=== PATIENT | female | born 1940 | race Caucasian/White ===

== ENCOUNTER → 2016-09-30 | Outpatient (CLI) | payer MEDICARE, BC ==
[2016-09-30 12:02] LABS: Non-African American GFR(MDRD) >60 (>60 ml/min/1.73 sqM)
== END | disposition home or self-care (01) ==
LOC: LABWHC1 10:50
PROVIDERS: ATTEND Psychiatry & Neurology Neurology
DX: R20.2 Paresthesia of skin (principal); R51 Headache; M54.2 Cervicalgia; R26.89 Other abnormalities of gait and mobility
CPT/HCPCS: 36415; 82565

== ENCOUNTER → 2016-10-08 | Outpatient (CLI) | payer MEDICARE, BC ==
--- NOTE | 2016-10-08 22:45 | MR ---
EXAMINATION TYPE: MR brain wo/w cspine wo DATE OF EXAM: 10/08/2016 1:46 PM COMPARISON: NONE HISTORY: numb lips/chin, imblance, pain in head, neck and back CONTRAST: Performed utilizing 20 mL intravenous MultiHance gadolinium contrast. TECHNIQUE: Multiplanar, multiecho imaging on a 3.0 Johanna magnet is performed through the brain. Stud y is performed within 24 hours of arrival to the hospital. The craniovertebral junction is normal. The pituitary is normal. Diffusion-weighted imaging is performed. No abnormal hyperintensity is present to suggest an acute i ntracranial infarct or acute ischemic change. Minimal white matter changes present. Flores, Arcadio space is in the left basal ganglia. This could be an old corner infarct. Ventricles and sulci are slightly prominent for the patient age. IMPRESSIONS: 1. Mild age-related atrophy. 2. Minimal chronic appearing white matter ischemic changes for the patient age. 3. Lacunar infarct or Virchow-Arcadio space left basal ganglion. EXAMINATION TYPE: MR brain wo/w cspine wo DATE OF EXAM: 10/08/2016 1:46 PM COMPARISON: NONE HISTORY: numb lips/chin, imblance, pain in head, neck and back CONTRAST: Performed utilizing 20 mL intravenous MultiHance gadolinium contrast. TECHNIQUE: Multiplanar multiecho imaging on a 3.0 Johanna magnet is performed through the cervical spin e. FINDINGS: The craniovertebral junction is normal. Vertebral body alignment is normal. C7-T1: No focal disc herniation or significant disc bulge is evident. No spinal canal stenosis or n eural foraminal stenosis is present. C6-7: Mild disc bulge is anterior thecal sac contact. No AP spinal canal stenosis present. Neural for amen are patent.. C5-6: There is narrowing of the disc space. Residual disc is anterior thecal sac contact. No cord con tact is evident. No spinal canal stenosis present. Neural foramen is patent.. C4-5: There is a small left paracentral disc bulge with anterior thecal sac contact. No AP spinal can al stenosis present. Uncovertebral joint hypertrophy is moderate left and mild right foraminal narrow ing.. C3-4: Mild disc bulging is anterior thecal sac contact. No spinal canal stenosis or neural foraminal stenosis is present.. C2-3: No focal disc herniation or significant disc bulge is evident. No spinal canal stenosis or lynette ral foraminal stenosis is present. Cord maintains normal signal through its visualized course. IMPRESSIONS: 1. Mild disc bulges with anterior thecal sac contact. No significant focal disc herniation or spinal canal stenosis is evident.
== END | disposition home or self-care (01) ==
LOC: RADMRIMAIN 11:44
PROVIDERS: ATTEND Psychiatry & Neurology Neurology
DX: G61.1 Serum neuropathy (principal); R90.89 Other abnormal findings on diagnostic imaging of central nervous system; M50.20 Other cervical disc displacement, unspecified cervical region
CPT/HCPCS: 70553; 72141; A9577

== ENCOUNTER 2017-09-27 12:36 | Emergency (ER) | payer MEDICARE, BC ==
[2017-09-27 14:20] VITALS: RESP 18; TEMP 98.9
[2017-09-27 14:45] LABS: Basophils % (A) 0 %; Eosinophils # (A) 0.2 k/uL (0-0.7); Eosinophils % (A) 3 %; HCT 40.8 % (34.0-46.0); HGB 13.9 gm/dL (11.4-16.0); Lymphocytes # (A) 1.3 k/uL (1.0-4.8); Lymphocytes % (A) 18 %; MCH 27.9 pg (25.0-35.0); MCV 82.2 fL (80.0-100.0); Mean Platelet Volume 6.8; Monocytes # (A) 0.3 k/uL (0-1.0); Monocytes % (A) 5 %; Neutrophils # (A) 5.6 k/uL (1.3-7.7); Neutrophils % (A) 73 %; Platelet Count 311 k/uL (150-450); Poikilocytosis Slight; RBC 4.96 m/uL (3.80-5.40); RDW 15.1 % (11.5-15.5); WBC 7.6 k/uL (3.8-10.6)
[2017-09-27 15:02] LABS: Albumin 3.8 g/dL (3.5-5.0); Calcium 9.8 mg/dL (8.4-10.2); Potassium 3.7 mmol/L (3.5-5.1); Total Bilirubin 0.4 mg/dL (0.2-1.3); Total Protein 6.6 g/dL (6.3-8.2)
[2017-09-27 15:40] VITALS: BP 148/84; PULSE 78
--- NOTE | 2017-09-27 15:49 | ED ---
Recheck HPI - General Chief Complaint: Recheck/Abnormal Lab/Rx Stated Complaint: lt foot infection Time Seen by Provider: 09/27/17 15:08 Source: patient, RN notes reviewed, old records reviewed Mode of arrival: wheelchair Limitations: no limitations - History of Present Illness Initial Comments: 77-year-old female presents is having today chief complaint of irritation over her left second toe. 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 She had her suture removed last Wednesday. Patient states she's good range of motion of the toes. She is nondiabetic. No previous ulcerations or infections to the foot or toe. Patient reports she has no neuropathy. She denies any significant pain related to the wound. She is ALLERGIC to sulfa drugs. No fevers or chills. No significant redness or streaking up the leg. - Related Data Home Medications Medication Instructions Recorded Confirmed Garlic 1 tab PO DAILY 01/19/14 09/27/17 Hydrochlorothiazide [Hydrodiuril] 25 mg PO BID 01/19/14 09/27/17 Levothyroxine Sodium [Synthroid] 137 mcg PO DAILY 01/19/14 09/27/17 Losartan Potassium [Cozaar] 100 mg PO HS 01/19/14 09/27/17 Metoprolol Tartrate [Lopressor] 50 mg PO BID 01/19/14 09/27/17 Multivitamins, Thera [Multivitamin 1 each PO DAILY@1200 01/19/14 09/27/17 (formulary)] Omeprazole [PriLOSEC] 20 mg PO AC-BRKFST 01/19/14 09/27/17 Sodium Chloride 5% Ophth Soln 1 drops LEFT EYE BID 01/19/14 09/27/17 [Ru 128] Vegitable Laxative 3 tab PO DAILY 01/19/14 09/27/17 lamoTRIgine [LaMICtal] 25 mg PO DAILY 01/19/14 09/27/17 Estrogens, Conjugated Cream 1 mg VAGINAL DIRECTED 04/07/17 09/27/17 [Premarin Cream] Calcium Polycarbophil [Fibercon] 1,250 mg PO TID 09/27/17 09/27/17 Previous Rx's Medication Instructions Recorded Cephalexin [Keflex] 500 mg PO Q6H #40 cap 09/27/17 Collagenase [Santyl] 1 applic TOPICAL DAILY #1 tube 09/27/17 Mupirocin [Mupirocin 2%] 1 applic TOPICAL TID #1 tube 09/27/17 Allergies Allergy/AdvReac Type Severity Reaction Status Date / Time Sulfa (Sulfonamide Allergy Unknown Verified 09/27/17 15:44 Antibiotics) Review of Systems ROS Statement: Those systems with pertinent positive or pertinent negative responses have been documented in the HPI. ROS Other: All systems not noted in ROS Statement are negative. Past Medical History Past Medical History: GERD/Reflux, Hearing Disorder / Deafness, Hypertension, Osteoarthritis (OA), Sleep Apnea/CPAP/BIPAP, Thyroid Disorder Additional Past Medical History / Comment(s): trigeminal neuralgia, hypothyroidism,SL HEARING LOSS BOTH HEARS; HYPERTENSION. History of Any Multi-Drug Resistant Organisms: None Reported Past Surgical History: Cholecystectomy, Orthopedic Surgery, Tonsillectomy Additional Past Surgical History / Comment(s): bunionectomy, sinus operation, CATARACT AND THYROID SURGERY Past Psychological History: No Psychological Hx Reported Smoking Status: Never smoker Past Alcohol Use History: None Reported Past Drug Use History: None Reported General Exam - General Exam Comments Initial Comments: 77-year-old female. Alert and oriented. No distress. Limitations: no limitations General appearance: alert, in no apparent distress Head exam: Present: atraumatic, normocephalic, normal inspection Eye exam: Present: normal appearance, PERRL, EOMI. Absent: scleral icterus, conjunctival injection, periorbital swelling ENT exam: Present: normal exam, mucous membranes moist Neck exam: Present: normal inspection. Absent: tenderness, meningismus, lymphadenopathy Respiratory exam: Present: normal lung sounds bilaterally. Absent: respiratory distress, wheezes, rales, rhonchi, stridor Cardiovascular Exam: Present: regular rate, normal rhythm, normal heart sounds. Absent: systolic murmur, diastolic murmur, rubs, gallop, clicks GI/Abdominal exam: Present: soft, normal bowel sounds. Absent: distended, tenderness, guarding, rebound, rigid Extremities exam: Present: normal inspection, full ROM, normal capillary refill. Absent: tenderness, pedal edema, joint swelling, calf tenderness Left Knee exam: Present: normal inspection, full ROM Lower Leg exam: Present: normal inspection, full ROM Ankle exam: Present: normal inspection, full ROM Foot/Toe exam: Present: erythema (Patient is a 3 cm area of erythema with small amount of drainage over the proximal second interphalangeal joint.). Absent: normal inspection, full ROM, tenderness Neurovascular tendon exam: Present: no vascular compromise Gait: observed and normal Back exam: Present: normal inspection Neurological exam: Present: alert, oriented X3, CN II-XII intact Psychiatric exam: Present: normal affect, normal mood Skin exam: Present: warm, dry, intact, normal color. Absent: rash Course Vital Signs 09/27/17 09/27/17 14:17 15:40 Temperature 98.9 F Pulse Rate 66 78 Respiratory 18 18 Rate Blood Pressure 150/73 148/84 O2 Sat by Pulse 96 98 Oximetry Medical Decision Making - Medical Decision Making 77-year-old nondiabetic presents emergency Department chief complaint of irritation over the left second toe. She had a recent hammertoe surgery. Patient interstitial move the last Wednesday. She only noticed the redness today. She has no significant pain with it. Full range of motion of the toes noted. White blood cell count is normal. Blood culture obtained. X-ray was reviewed. There is some likely postoperative changes over the proximal second toe. Low is difficult to totally exclude an infection. Discussed with just this one day of redness and no significant pain with range of motion, discussed that we'll start the patient on antibiotics for for infection but she needs to follow up with her surgeon. Not clinically concerned for only one day of redness for diagnosis of osteomyelitis at this time. Epigastric changes are most likely supposed postsurgical rather than infectious. She does have an appointment later this week. Discussed that if there is worsening redness or significant patient is to return for further evaluation. We'll start the patient on the Ulrich Nohemi cream. I also started the patient on Keflex. - Lab Data Result diagrams: 09/27/17 14:32 09/27/17 14:32 Lab Results 09/27/17 09/27/17 09/27/17 Range/Units 14:32 14:32 14:32 WBC 7.6 (3.8-10.6) k/uL RBC 4.96 (3.80-5.40) m/uL Hgb 13.9 (11.4-16.0) gm/dL Hct 40.8 (34.0-46.0) % MCV 82.2 (80.0-100.0) fL MCH 27.9 (25.0-35.0) pg MCHC 34.0 (31.0-37.0) g/dL RDW 15.1 (11.5-15.5) % Plt Count 311 (150-450) k/uL Neutrophils % 73 % Lymphocytes % 18 % Monocytes % 5 % Eosinophils % 3 % Basophils % 0 % Neutrophils # 5.6 (1.3-7.7) k/uL Lymphocytes # 1.3 (1.0-4.8) k/uL Monocytes # 0.3 (0-1.0) k/uL Eosinophils # 0.2 (0-0.7) k/uL Basophils # 0.0 (0-0.2) k/uL Poikilocytosis Slight Sodium 147 H (137-145) mmol/L Potassium 3.7 (3.5-5.1) mmol/L Chloride 105 (98-107) mmol/L Carbon Dioxide 30 (22-30) mmol/L Anion Gap 12 mmol/L BUN 25 H (7-17) mg/dL Creatinine 0.80 (0.52-1.04) mg/dL Est GFR (CKD-EPI)AfAm 84 (>60 ml/min/1.73 sqM) Est GFR (CKD-EPI)NonAf 73 (>60 ml/min/1.73 sqM) Glucose 104 H (74-99) mg/dL Plasma Lactic Acid Fidencio 0.8 (0.7-2.0) mmol/L Calcium 9.8 (8.4-10.2) mg/dL Total Bilirubin 0.4 (0.2-1.3) mg/dL AST 23 (14-36) U/L ALT 27 (9-52) U/L Alkaline Phosphatase 96 (38-126) U/L Total Protein 6.6 (6.3-8.2) g/dL Albumin 3.8 (3.5-5.0) g/dL - Radiology Data Radiology results: report reviewed X-ray shows no deformity involving the second proximal phalangeal head suspected to be in a postoperative basis. Clinical correlation recommended however they asked me emergent appears irregular and indistinct. Infection here is difficult to exclude. Additional bolus along the distal third toes new from 2014. Postsurgical. Prior bunion repair with persistent moderate hallux valgus deformity. Disposition Clinical Impression: Surgical site infection Disposition: HOME SELF-CARE Condition: Good Instructions: Cellulitis (ED) Additional Instructions: Patient advised follow-up with primary care provider and surgeon within the next 1-2 days. Take the antibiotics and use the dressings as prescribed. Return to emergency department if any alarming signs or symptoms occur. Prescriptions: Cephalexin [Keflex] 500 mg PO Q6H #40 cap Collagenase [Santyl] 1 applic TOPICAL DAILY #1 tube Mupirocin [Mupirocin 2%] 1 applic TOPICAL TID #1 tube Is patient prescribed a controlled substance at discharge?: No If prescribed controlled substance>3 days was MAPS reviewed?: No When asked, does pt state using other controlled substances?: No Referrals: Jordan Mcgrath MD [Primary Care Provider] - 1-2 days Time of Disposition: 16:03
--- NOTE | 2017-09-27 15:52 | XR ---
EXAMINATION TYPE: XR foot complete LT DATE OF EXAM: 09/27/2017 COMPARISON: 10/23/2014 HISTORY: 77-year-old female with pain and redness, left second digit TECHNIQUE: 3 views FINDINGS: Orthopedic hardware is present within the proximal first metatarsal including a cortical screw and pi n. Post bunionectomy changes. There is moderate hallux valgus deformity. Deformity to the second proximal phalangeal head suspected to be on a postoperative basis. However, t he osteotomy margin appears irregular. Degenerative changes within the midfoot and small plantar calcaneal spur. New amputation of the third toe at the level of the first proximal phalangeal head. IMPRESSION: 1. New deformity involving the second proximal phalangeal head suspected to be on a postoperative bas is. Clinical correlation recommended. However, the osteotomy margin appears irregular and indistinct. Infection here is difficult to exclude. 2. Additional bone loss along the distal third toe is new from 2014, probably postsurgical. Again, cl inically correlate. 3. Prior bunion repair with persistent moderate hallux valgus deformity.
== END 2017-09-27 16:24 | disposition home or self-care (01) ==
LOC: EC 12:36
DX: T81.4XXA Infection following a procedure, initial encounter (principal); L08.89 Other specified local infections of the skin and subcutaneous tissue; I10 Essential (primary) hypertension; E03.9 Hypothyroidism, unspecified; H91.93 Unspecified hearing loss, bilateral; K21.9 Gastro-esophageal reflux disease without esophagitis; Z79.899 Other long term (current) drug therapy; Z88.2 Allergy status to sulfonamides
CPT/HCPCS: 36415; 80053; 83605; 85025; 87040; 87070; 87205; 99284

== ENCOUNTER → 2018-04-14 | Outpatient (CLI) | payer MEDICARE, BC ==
--- NOTE | 2018-04-14 14:01 | CT ---
EXAMINATION TYPE: CT sinus wo con DATE OF EXAM: 04/14/2018 COMPARISON: 05/04/2013 HISTORY: sinus headache pressure/coughing up phlegm CT DLP: 468 mGycm CONTRAST: 0 mL of Isovue 300 The paranasal sinuses are examined in the axial plane at 2 mm thick sections. Reconstructed images i n the coronal plane were obtained. There is dental amalgam scatter artifact. There is been prior uncinectomies. Ethmoidectomies been performed. The maxillary sinuses are clear. The ethmoid air cells are clear. The sphenoid sinuses are clear. The frontal sinuses are clear. The septum is evaluated. There is septal deviation to the right. Small right septal spur is present. The ostiomeatal units at the prior uncinectomies are patent. IMPRESSIONS: 1. No suspicious paranasal sinus changes. 2. Postsurgical uncinectomies and ethmoidectomies.
== END ==
LOC: RADCTMAIN 13:35
PROVIDERS: ATTEND Otolaryngology
DX: J32.9 Chronic sinusitis, unspecified (principal); Z90.89 Acquired absence of other organs
CPT/HCPCS: 70486

== ENCOUNTER → 2018-04-19 | Outpatient (CLI) | payer MEDICARE, BC ==
--- NOTE | 2018-04-19 08:10 | XR ---
EXAMINATION TYPE: XR chest 2V DATE OF EXAM: 04/19/2018 COMPARISON: NONE HISTORY: Cough and drainage for 2 weeks. TECHNIQUE: Frontal and lateral views of the chest are obtained. FINDINGS: There is lateral right basilar opacity confirmed on 2 views could reflect atelectasis and/ or infiltrate. No prior available for comparison. There is additional left basilar linear opacity con sistent with atelectasis and/or infiltrate. No pleural effusion or pneumothorax is present bilaterall y. The cardiac silhouette size is upper limits of normal with atherosclerotic and ectatic thoracic ao rta. Moderate degenerative change bilateral glenohumeral joints is present. Suspect loose ossified suhail dy right shoulder joint. IMPRESSION: Bibasilar infiltrate and/or atelectasis is noted.
== END | disposition home or self-care (01) ==
LOC: RADXRMAIN 07:41
PROVIDERS: ATTEND Otolaryngology
DX: J98.11 Atelectasis (principal); R91.8 Other nonspecific abnormal finding of lung field
CPT/HCPCS: 71046

== ENCOUNTER → 2018-05-11 | Outpatient (CLI) | payer MEDICARE, BC ==
--- NOTE | 2018-05-11 12:43 | CT ---
EXAMINATION TYPE: CT chest w con DATE OF EXAM: 05/11/2018 COMPARISON: Radiograph 04/19/2018 HISTORY: 78 year-old female shortness of breath, Coughing up blood TECHNIQUE: Contiguous axial scanning of the chest after the administration of 100 mL of Isovue 300. Coronal/sagittal reconstructions performed. CT DLP: 870.9mGycm. Automatic exposure control utilized for a dose reduction. FINDINGS: The left lobe of the thyroid gland is either atrophic or surgically absent. Heart normal size with trace anterior pericardial thickening/fluid. Mild coronary vessel calcificatio ns are present. The ascending aorta ectatic and 3.6 cm. Conventional arch vessel branching anatomy. Prominent but nonenlarged AP window lymph node 8 mm. No thoracic lymphadenopathy by CT size criteria. Central airways are clear. Strandy atelectasis or scarring in the mid and lower lungs without consolidation or pleural effusion. Visualized upper abdomen shows bilateral renal cysts measuring up to 7.3 cm on the right and 5.7 cm o n the left as well as a posterior Central right liver lobe cyst measuring 2.5 cm. Cholecystectomy cli ps. Moderate stool burden. Bones: Advanced degenerative changes of the shoulders. Additional multilevel mild to moderate degener ative disc disease throughout the thoracic spine. IMPRESSION: Strandy areas of scarring or atelectasis in the mid and lower lungs. No acute pulmonary process ident ified. Partially visualized large renal cysts measuring up to 7.3 cm.
== END | disposition home or self-care (01) ==
LOC: RADCTMAIN 10:54
PROVIDERS: ATTEND Internal Medicine Critical Care Medicine
DX: R06.02 Shortness of breath (principal); Z88.2 Allergy status to sulfonamides
CPT/HCPCS: 82565; 84520; 71260; 36415; Q9967

== ENCOUNTER → 2018-10-31 | Day surgery (SDC) | payer MEDICARE, BC ==
[2018-10-26 09:31] VITALS: BMI 37.4
[~2018-10-31] MED LIST: BUPIVACAIN-EPI 0.5%-1:200,000 30 ML VIAL SQ ONE; DEXAMETHASONE SOD PHOSPHATE 10 MG/ML 1 ML VIAL IV ONE; HEPARIN SODIUM,PORCINE 5,000 UNIT/ML 1 ML VIAL SQ ONE; HYDROmorphone 0.5 MG/0.5 ML SYRINGE IVP PRN; MIDAZOLAM 2 MG/2 ML VIAL IV PRN; MIDAZOLAM 2 MG/2 ML VIAL ONE; ONDANSETRON 4 MG/2 ML VIAL IVP ONE; PROPOFOL 10 MG/ML 20 ML VIAL IV ONE; SUCCINYLCHOLINE CHLORIDE 100 MG/5 ML SYR IV ONE; ceFAZolin 1,000 MG VIAL IVPB ONE; ceFAZolin 3 GM in SODIUM CHLORIDE 0.9% 100 ML IVPB ONE; fentaNYL (PF) 50 MCG/ML 2 ML AMP ONE
[2018-10-31] MEDS: LACTATED RINGERS 1,000 ML IV SCH ×2 (09:07→12:01)
--- NOTE | 2018-10-31 10:51 | P.GSHP ---
History of Present Illness H&P Date: 10/31/18 Chief Complaint: Back lipoma This a 78-year-old female who presents today for excision of back lipoma. Patient has developed a 10 cm mass on her left upper back. Past Medical History Past Medical History: GERD/Reflux, Hypertension, Osteoarthritis (OA), Sleep Apnea/CPAP/BIPAP, Thyroid Disorder Additional Past Medical History / Comment(s): trigeminal neuralgia, hypothyroidism,SL HEARING LOSS BOTH HEARS; HYPERTENSION. L toe swollen and very painful. States scar tissue in lungs. History of Any Multi-Drug Resistant Organisms: None Reported Past Surgical History: Cholecystectomy, Heart Catheterization, Orthopedic Surgery, Tonsillectomy Additional Past Surgical History / Comment(s): Bunionectomy, sinus operation, CATARACT AND Bx of THYROID. Scheduled to have L toe removal at .on 10/27/18. Past Anesthesia/Blood Transfusion Reactions: No Reported Reaction Smoking Status: Never smoker - Past Family History Mother Family Medical History: Hypertension Medications and Allergies Home Medications Medication Instructions Recorded Confirmed Type Garlic 1 tab PO DAILY 01/19/14 10/26/18 History Hydrochlorothiazide [Hydrodiuril] 25 mg PO BID 01/19/14 10/26/18 History Levothyroxine Sodium [Synthroid] 137 mcg PO DAILY 01/19/14 10/26/18 History Losartan Potassium [Cozaar] 100 mg PO HS 01/19/14 10/26/18 History Metoprolol Tartrate [Lopressor] 100 mg PO BID 01/19/14 10/26/18 History Multivitamins, Thera [Multivitamin 1 each PO DAILY@1200 01/19/14 10/26/18 History (formulary)] Omeprazole [PriLOSEC] 20 mg PO AC-BRKFST 01/19/14 10/26/18 History Sodium Chloride 5% Ophth Soln 1 drops LEFT EYE BID 01/19/14 10/26/18 History [Ru 128] lamoTRIgine [LaMICtal] 25 mg PO DAILY 01/19/14 10/26/18 History Calcium Polycarbophil [Fibercon] 1,250 mg PO DAILY 09/27/17 10/26/18 History Alpha Lipoic Acid 50 mg PO DAILY 10/26/18 10/26/18 History Aspirin Back & Body (? Dose) 1 tab PO DAILY 10/26/18 10/26/18 History Calcium Carbonate [Calcium] 600 mg PO DAILY 10/26/18 10/26/18 History Imipramine [Tofranil] 10 mg PO HS 10/26/18 10/26/18 History Loratadine [Claritin] 10 mg PO DAILY 10/26/18 10/26/18 History PARoxetine [Paxil] 10 mg PO DAILY 10/26/18 10/26/18 History Turmeric Root Extract [Turmeric] 500 mg PO DAILY 10/26/18 10/26/18 History rOPINIRole HCL [Requip] 1 mg PO BID 10/26/18 10/26/18 History Allergies Allergy/AdvReac Type Severity Reaction Status Date / Time Sulfa (Sulfonamide Allergy Unknown Verified 10/31/18 08:54 Antibiotics) Surgical - Exam Vital Signs Temp Pulse Resp BP Pulse Ox 97.4 F L 53 L 16 182/81 97 10/31/18 08:52 10/31/18 08:52 10/31/18 08:52 10/31/18 08:52 10/31/18 08:52 - General well developed, well nourished, no distress - Eyes PERRL - ENT normal pinna - Neck no masses - Respiratory normal expansion - Cardiovascular Rhythm: regular - Abdomen Abdomen: soft, non tender - Integumentary 10 cm mass left upper back Assessment and Plan Assessment: Back lipoma. We will perform excision.
[2018-10-31 12:08] VITALS: TEMP 98.2
--- NOTE | 2018-10-31 12:12 | P.OP ---
Date of Procedure: 10/31/18 Preoperative Diagnosis: Back lipoma Postoperative Diagnosis: Back lipoma Procedure(s) Performed: Excision of back lipoma Anesthesia: MAC Surgeon: Terry Cavazos Estimated Blood Loss (ml): 10 Pathology: other (Back lipoma) Condition: stable Disposition: PACU Description of Procedure: Patient's placed on the operating table in the lateral position. She received general anesthesia. Her back was prepped and draped usual sterile fashion. A longitudinal skin incision was made over the mass. The mass measures approximately 10 cm diameter. Using cautery the subcutaneous tissue divided. The mass was then dissected free using which cautery. The mass appeared to be a lipoma. The specimen sent to pathology. The lipoma measured 10 x 10 x 4 cm the Bovie hemostasis. The skin was closed in 2 layers using 3-0 Monocryl and 3-0 Vicryl. Dermabond was applied. A SEVERO drain had been placed in the wound prior to skin closure. This was brought through separate stab incision. Patient sent to recovery in stable condition.
[2018-10-31 13:40] VITALS: BP 133/86; PULSE 74; RESP 17
== END | disposition home or self-care (01) ==
LOC: OR 08:30
PROVIDERS: ATTEND Surgery
DX: D17.1 Benign lipomatous neoplasm of skin and subcutaneous tissue of trunk (principal); E03.9 Hypothyroidism, unspecified; H91.90 Unspecified hearing loss, unspecified ear; I10 Essential (primary) hypertension; K21.9 Gastro-esophageal reflux disease without esophagitis; M19.90 Unspecified osteoarthritis, unspecified site; G47.30 Sleep apnea, unspecified; Z99.89 Dependence on other enabling machines and devices; Z90.49 Acquired absence of other specified parts of digestive tract; Z98.49 Cataract extraction status, unspecified eye; Z79.890 Hormone replacement therapy; Z79.899 Other long term (current) drug therapy; Z88.2 Allergy status to sulfonamides; Z79.82 Long term (current) use of aspirin
CPT/HCPCS: 88304; 11406; 12034; J2250; J1644; J2405; J0690; J3010; J0330; J2704

== ENCOUNTER → 2019-08-25 | Outpatient (CLI) | payer MEDICARE ==
--- NOTE | 2019-08-25 10:50 | MR ---
EXAMINATION TYPE: MR lumbar spine wo con DATE OF EXAM: 08/25/2019 COMPARISON: NONE HISTORY: spinal stenosis, lumbar region TECHNIQUE: T1 and T2 axial and sagittal images of the lumbar spine are submitted. FINDINGS: There is no abnormal signal seen within the visualized spinal cord or paraspinal soft tissu es. Large simple appearing bilateral renal cysts. Vertebral body hemangiomas noted. Sagittal image at T11-T12 demonstrates degenerative disc disease and sagittal disc bulging. At T12-L1 there is degenerative disc disease and disc bulging but no evidence of disc herniation, can al stenosis or foraminal encroachment. At L1-2 there is severe degenerative disc disease with diffuse disc broad-based disc bulging centrall y. Disc bulging is greater laterally to left. Small protrusion suspected with mild to moderate left f oraminal encroachment. At L2-3 there is severe degenerative disc disease with diffuse disc bulging and hypertrophic spur for mation. Facet arthropathy and ligamentum flavum hypertrophy contribute to moderate canal stenosis and bilateral foraminal encroachment. At L3-4 there is diffuse disc bulging or protrusion centrally with facet arthropathy and ligamentum f lavum hypertrophy. There is bilateral mild foraminal encroachment with mild central stenosis. At L4-5 there is severe degenerative disc disease and facet arthropathy diffuse disc bulging. There i s severe canal stenosis. No left-sided foraminal encroachment. Moderate to severe right foraminal enc roachment noted. There is a grade 1 anterolisthesis of L4 on L5 At L5-S1 there is generative disc disease with facet arthropathy and ligamentum flavum hypertrophy. T here is disc bulging circumferentially with mild bilateral foraminal encroachment. IMPRESSION: 1. Multilevel severe degenerative disc disease at all levels. Severe canal stenosis L4-L5 with bilate ral foraminal encroachment secondary to disc bulging and marked facet and ligamentum flavum hypertrop hy. Grade 1 anterolisthesis appears degenerative. 2. Disc bulging or protrusion and hypertrophic changes L3-L4 with results in mild canal stenosis. 3. Disc bulging or protrusion with hypertrophic changes of the facets and ligamentum flavum L2-L3 res ults in
== END | disposition home or self-care (01) ==
LOC: RADMRIMAIN 09:16
PROVIDERS: ATTEND Psychiatry & Neurology Neurology
DX: M48.061 Spinal stenosis, lumbar region without neurogenic claudication (principal); M51.26 Other intervertebral disc displacement, lumbar region; M51.36 Other intervertebral disc degeneration, lumbar region; M43.16 Spondylolisthesis, lumbar region
CPT/HCPCS: 72148

== ENCOUNTER 2021-08-29 09:50 | Day surgery (SDC) | payer MEDICARE ==
[2021-08-28 10:47] VITALS: BMI 36.6
[~2021-08-29 09:50] MED LIST changes: -BUPIVACAIN-EPI 0.5%-1:200,000 30 ML VIAL SQ ONE; -DEXAMETHASONE SOD PHOSPHATE 10 MG/ML 1 ML VIAL IV ONE; -HEPARIN SODIUM,PORCINE 5,000 UNIT/ML 1 ML VIAL SQ ONE; -HYDROmorphone 0.5 MG/0.5 ML SYRINGE IVP PRN; +LACTATED RINGERS 1,000 ML IV SCH; -MIDAZOLAM 2 MG/2 ML VIAL IV PRN; -MIDAZOLAM 2 MG/2 ML VIAL ONE; -ONDANSETRON 4 MG/2 ML VIAL IVP ONE; -PROPOFOL 10 MG/ML 20 ML VIAL IV ONE; -SUCCINYLCHOLINE CHLORIDE 100 MG/5 ML SYR IV ONE; -ceFAZolin 1,000 MG VIAL IVPB ONE; -ceFAZolin 3 GM in SODIUM CHLORIDE 0.9% 100 ML IVPB ONE; -fentaNYL (PF) 50 MCG/ML 2 ML AMP ONE
[2021-08-29] MEDS ORDERED: LACTATED RINGERS 1,000 ML IV ONE (10:38)
[2021-08-29 10:43] VITALS: TEMP 98
[2021-08-29] MEDS ORDERED: LIDOCAINE 1% INJ 10MG/ML (20 ML MDV) ONE (11:34)
[2021-08-29] MEDS ORDERED: PROPOFOL 10 MG/ML 20 ML VIAL IV ONE (11:34)
--- NOTE | 2021-08-29 11:42 | P.PCN ---
Date of Procedure: 08/29/21 Procedure(s) Performed: BRIEF HISTORY: Patient is a 81-year-old, pleasant, white female scheduled for an upper endoscopy as part of evaluation of intermittent dysphagia to solids for the last 2 months duration.. PROCEDURE PERFORMED: Esophagogastroduodenoscopy with biopsy. PREOPERATIVE DIAGNOSIS: Intermittent dysphagia to solids for the last 2 months duration. IV sedation per anesthesia. PROCEDURE: After informed consent was obtained, the patient was brought into the endoscopy unit. IV sedation was administered by Anesthesia under continuous monitoring. Initially the Olympus GIF-140 video endoscope was inserted into the mouth. Esophagus intubated without any difficulty. It was gradually advanced into the stomach and duodenum and carefully examined. The bulb and the second part of the duodenum appeared normal. The scope at this time was withdrawn to the stomach, adequately insufflated with air, and upon careful examination, mucosa of the antrum and mild gastritis and biopsies were done from this area. The, body, cardia and the fundus appeared normal. The scope was then withdrawn into the esophagus. The GE junction was located at 41 cm from the incisors. Small sliding type hiatal hernia noted. The esophagus appeared normal. There were no erosions or ulcerations seen , no evidence of esophageal stricture. Biopsies were done from the mid and distal esophagus to rule out eosinophilic esophagitis and the patient tolerated the procedure well. IMPRESSION: 1. Normal-appearing esophagus with no evidence of esophagitis or esophageal stricture. 2. Small hiatal hernia. 3. Mild antral gastritis RECOMMENDATIONS: The findings of this examination were discussed with the patient well as her family. She was advised to follow with the biopsy results. She will continue with omeprazole 20 mg daily and follow antireflux measures.
[2021-08-29 11:50] VITALS: RESP 16
[2021-08-29 12:01] VITALS: BP 120/70; PULSE 51
== END 2021-08-29 12:24 | disposition home or self-care (01) ==
LOC: ORWHC2ENDO 09:50
PROVIDERS: ATTEND Internal Medicine Gastroenterology
DX: K29.50 Unspecified chronic gastritis without bleeding (principal); K31.9 Disease of stomach and duodenum, unspecified; K20.0 Eosinophilic esophagitis; R13.10 Dysphagia, unspecified; K44.9 Diaphragmatic hernia without obstruction or gangrene; Z79.899 Other long term (current) drug therapy; I10 Essential (primary) hypertension; E78.5 Hyperlipidemia, unspecified; K21.9 Gastro-esophageal reflux disease without esophagitis; E66.01 Morbid (severe) obesity due to excess calories; Z68.33 Body mass index [BMI] 33.0-33.9, adult; Z79.890 Hormone replacement therapy; Z90.49 Acquired absence of other specified parts of digestive tract; Z98.890 Other specified postprocedural states; Z88.2 Allergy status to sulfonamides
CPT/HCPCS: 88305; 43239; J2001; J2704

== ENCOUNTER → 2021-11-14 | Outpatient (CLI) | payer MEDICARE ==
[2021-11-14 14:28] LABS: Partial Thromboplastin Time 23.1 sec (22.0-30.0); Prothrombin Time 10.7 sec (9.0-12.0)
[2021-11-14 18:30] LABS: HCT 42.9 % (37.2-46.3); HGB 13.5 g/dL (12.0-15.0); MCH 27.7 pg (27.0-32.0); MCHC 31.5 g/dL (32.0-37.0); MCV 88.1 fL (80.0-97.0); Mean Platelet Volume 8.9 fL (9.5-12.2); NRBC Per 100 WBC 0 /100 WBCS (0.0-0.0); Platelet Count 274 X 10*3/uL (140-440); RBC 4.87 X 10*6/uL (4.10-5.20); RDW 15.8 % (11.5-14.5); WBC 8.38 X 10*3/uL (4.50-10.00)
[2021-11-14 18:53] LABS: African American GFR (CKD) 82.3 (60.0-200.0); Albumin/Globulin Ratio 1.83 (1.60-3.17); Anion Gap 10.8 mmol/L (10.00-18.00); BUN/Creat Ratio 27.4 Ratio (12.00-20.00); Blood Urea Nitrogen 21.7 mg/dL (9.0-27.0); Calcium 9.8 mg/dL (8.7-10.3); Carbon Dioxide 26.8 mmol/L (20.0-27.5); Globulin 2.2 g/dL (1.6-3.3); Potassium 3.7 mmol/L (3.5-5.5); Total Bilirubin 0.5 mg/dL (0.30-1.20); Total Protein 6.2 g/dL (6.2-8.2)
[2021-11-14 22:51] LABS: Appearance,Urine Cloudy (Clear); Bilirubin,Urine Small (Negative); Blood,Urine Negative (Negative); Color,Urine Dark Yellow (Yellow); Ketones,Urine Negative (Negative); Nitrite,Urine Negative (Negative); PH, Urine 5.5 (5.0-8.0); Specific Gravity,Urine 1.019 (1.001-1.030); Urobilinogen,Urine 0.2 (0.2,1.0)
[2021-11-15 00:38] LABS: Bacteria,Urine 1+ /HPF (None Seen)
== END | disposition home or self-care (01) ==
LOC: LABWHC1 11:36
PROVIDERS: ATTEND Orthopaedic Surgery
DX: Z01.818 Encounter for other preprocedural examination (principal); R00.1 Bradycardia, unspecified
CPT/HCPCS: 80053; 81001; 85027; 85610; 85730; 87070; 93005

== ENCOUNTER 2021-11-25 11:02 | Observation (INO) | payer MEDICARE ==
[~2021-11-25 11:02] MED LIST changes: +ACETAMINOPHEN TAB 500 MG TAB PO PRN; +DEXAMETHASONE SOD PHOSPHATE 4 MG/ML 1 ML VIAL IV ONE; +GABAPENTIN 300 MG CAP PO PRN; +HYDROmorphone 0.5 MG/0.5 ML SYRINGE IVP PRN; -LACTATED RINGERS 1,000 ML IV SCH; +LIDOCAINE 1% (10MG/ML) FOR IV START INTRADERMA PRN; +MELOXICAM 7.5 MG TAB PO PRN; +MIDAZOLAM 2 MG/2 ML VIAL IV PRN; +ONDANSETRON 4 MG/2 ML VIAL IVP ONE; +TRANEXAMIC ACID IN NACL,ISO-OS 1,000 MG in SALINE 1 100ML.BAG IVPB PRN
[2021-11-25] MEDS: LACTATED RINGERS 1,000 ML IV SCH (12:09)
--- NOTE | 2021-11-25 13:11 | P.ANPRN ---
Procedure Note - Anesthesia - Nerve Block Performed Right Interscalene Single Time Out Performed: Yes Date of Procedure: 11/25/21 Procedure Start Time: 12:39 Procedure Stop Time: 12:43 Location of Patient: PreOp Indication: Acute Post-Operative Pain, Requested by Surgeon Sedation Type: Sedate with meaningful contact maintained Preparation: Sterile Prep Position: Supine Needle Types: Pajunk Needle Gauge: 21 Ultrasound used to visualize needle placement: Yes Ultrasound used to observe medication spread: Yes Blood Aspirated: No Pain Paresthesia on Injection Noted: No Resistance on Injection: Normal Image Stored and Saved: Yes Events: Uneventful and Well Tolerated (ropi .5% 25cc plus dexamethasone 4mg)
[2021-11-25] MEDS ORDERED: TRANEXAMIC ACID IN NACL,ISO-OS 1,000 MG/100 ML BAG ONE (13:29)
[2021-11-25] MEDS ORDERED: ROPIVACAINE 5 MG/ML 30 ML VIAL ONE (13:29)
[2021-11-25] MEDS ORDERED: ePHEDrine 50 MG/ML 1 ML VIAL ONE (13:29)
[2021-11-25] MEDS ORDERED: DEXAMETHASONE SOD PHOSPHATE 4 MG/ML 1 ML VIAL ONE (13:29)
[2021-11-25] MEDS ORDERED: GLYCOPYRROLATE 0.2 MG/ML 2 ML VIAL ONE (13:29)
[2021-11-25] MEDS ORDERED: fentaNYL (PF) 50 MCG/ML 2 ML AMP ONE (13:29)
[2021-11-25] MEDS ORDERED: SUCCINYLCHOLINE CHLORIDE 100 MG/5 ML SYR IV ONE (13:29)
[2021-11-25] MEDS ORDERED: LIDOCAINE 2% INJ 20 MG/ML (2 ML VIAL) ONE (13:29)
[2021-11-25] MEDS ORDERED: PROPOFOL 10 MG/ML 20 ML VIAL IV ONE (13:29)
[2021-11-25] MEDS ORDERED: PHENYLEPHRINE-0.9% NACL SYG 1,000 MCG/10 ML SYRINGE ONE (13:29)
[2021-11-25] MEDS ORDERED: ceFAZolin 1,000 MG in SODIUM CHLORIDE 0.9% 1,000 ML IRRIGATION ONE (13:34)
--- NOTE | 2021-11-25 14:51 | P.OP ---
Date of Procedure: 11/25/21 Preoperative Diagnosis: Severe osteoarthritis of the right shoulder with chronic rotator cuff deficiency Postoperative Diagnosis: Severe osteoarthritis of the right shoulder with chronic rotator cuff deficiency Procedure(s) Performed: Reverse total shoulder arthroplasty Implants: Biomet comprehensive shoulder system, mini humeral stem, 9 mm porous-coated. Biomet comprehensive reverse shoulder system, humeral bearing, 36 mm, standard Biomet comprehensive reverse shoulder system, mini humeral tray, 40 mm, +0, standard Biomet comprehensive reverse shoulder, Glenosphere mini baseplate, 25 mm Biomet comprehensive reverse shoulder, central screw, 6.5 mm x 25 mm Biomet comprehensive reverse shoulder, fixed locking screw, 4.75 x 25 mm, 15 mm, 15 mm, 25 mm. Biomet comprehensive reverse shoulder glenosphere, 36 mm, standard All components were press-fit. Articulation is metal on polyethylene.Articulation is metal on polyethylene. Anesthesia: RONY Surgeon: Sterling Stevens Glass Blowing Instructor #1: Rosendo Vargas Estimated Blood Loss (ml): 50 Pathology: other (Bone and cartilage) Condition: stable Disposition: PACU Indications for Procedure: This is a patient that presented to my office with severe pain in the shoulder. X-rays demonstrated severe osteoarthritis of the glenohumeral joint of her shoulder. After failure of conservative treatment, we discussed the surgical and nonsurgical treatment options at length. The patient wishes to proceed with a reverse total shoulder arthroplasty. Patient is aware of the complications of the procedure which include but are not limited to infection, hardware failure, persistent pain, dislocation, and nerve injury. Informed consent was obtained. Operative Findings: The operative findings are consistent with severe osteoarthritis of the right shoulder with chronic rotator cuff deficiency Description of Procedure: The patient was seen in the preoperative area, consent was reviewed, and operative site was marked with a skin marker. Patient was then brought to the operating room and given preoperative antibiotics intravenously. Patient was also given 1 g of Tranexamic acid intravenously. A general anesthetic was administered by the anesthesia department. A Arnold catheter was placed by the nursing staff. The patient was then placed in a beachchair position with the bony prominences well-padded and the head secured. The shoulder was then prepped and draped in the usual sterile fashion. A universal timeout was then performed, which confirmed the patient's name, surgical site, ALLERGIES, and consent. A standard deltopectoral approach was performed. The skin and subcutaneous tissue was sharply dissected down to the deltoid fascia. The cephalic vein was then identified and retracted medially. The deltopectoral interval was then utilized to expose the subscapularis tendon. A retractor was then placed under the coracobrachialis tendon retracted medially, and the deltoid. The axillary nerve is palpated and protected throughout the procedure. The subscapularis tendon was then released and retracted medially. The humeral head was then exposed easily. The rotator cuff tendon was found to be completely torn and retracted. After the humeral head was exposed, osteophytes were removed with a Ronguer. Next the humeral stem was prepared. A starter reamer was then placed through the humeral head along the axis of the humeral shaft just lateral to the articular surface and just medial to the rotator cuff attachment. Sequential reaming was performed to the appropriate size reamer was inserted to the #between the 3 and 4 on the reamer. Next the intramedullary resection guide was placed on the reamer shaft. It was placed to the appropriate resection depth and angle of 30 of retroversion. Resection guide block was then secured with Steinmann pins. The proximal humerus was then resected. The block was then removed and the humerus was then broached sequentially to the same size as the reamer. After the broaches fully seated, the broach handle was removed and a broach cover was placed protect the humerus while the glenoid was prepared. Next attention was directed to the glenoid. The appropriate retractors were placed around the glenoid and any remaining soft tissues was removed from around the glenoid. After the glenoid was adequately exposed, the threaded glenoid g uide was placed onto the glenoid and a 3.2 mm Steinmann pin was inserted in the glenoid at the desired angle and position, ensuring the pin engaged medial cortical wall. Next, the cannulated baseplate reamer was placed over the top of the Steinmann pin. The glenoid was then reamed to the appropriate depth. The glenoid reamer was then removed, leaving the Steinmann pin. The glenoid Jose plate implant was placed on the end of the cannulated baseplate impactor. The baseplate was then impacted fully into the glenoid. Next the 6.5 mm central screw was then placed which afforded excellent fixation. The 4 peripheral locking screws were then drilled measured and placed. Next the appropriate glenosphere was opened and impacted into the glenoid baseplate. Attention was then redirected to the humerus. Next a trial humeral tray was placed in the shoulder was reduced. Shoulder was taken through a full range of motion and found to be stable. The shoulder was then gently dislocated, and the trial humerus and humeral tray were removed. The final humeral stem was impacted in the final humeral tray was impacted as well. Shoulder was then relocated. Again the shoulder was taken through a range of motion and found to have no instability. Shoulder was then irrigated with pulsatile lavage. The shoulder was then irrigated with Irrisept solution. A second dose of 1 g of Tranexamic acid was given. The subscapularis was then repaired with #1 Vicryl. The deltopectoral interval was then closed with #1 Vicryl as well. The subcutaneous tissues were closed with 2-0 Vicryl then 3-0 strata fix. Exofin glue was placed on the skin. A sterile dressing was then applied, the patient was transported to the recovery room in an arm sling in stable condition. The team assistant LILLIAN Wharton was required due the complexity of surgery and the need for a skilled surgical assistant certified.
[2021-11-25] MEDS ORDERED: HYDROmorphone 0.5 MG/0.5 ML SYRINGE IVP PRN ×3 (15:41)
[2021-11-25] MEDS ORDERED: HYDROcodone/APAP 5-325MG 1 EACH TAB PO PRN (15:41)
[2021-11-25] MEDS ORDERED: ONDANSETRON 4 MG/2 ML VIAL IVP PRN (15:41)
[2021-11-25] MEDS ORDERED: SENNOSIDES-DOCUSATE SODIUM 1 EACH TAB PO PRN (15:48)
--- NOTE | 2021-11-25 17:51 | XR ---
EXAMINATION TYPE: XR shoulder limited RT DATE OF EXAM: 11/25/2021 5:31 PM INDICATION: Patient age:Female; 81 years old; Reason for study: Postoperative hardware alignment; COMPARISON: None TECHNIQUE: The right shoulder was examined in AP, internally rotated and scapular Y projections. . FINDINGS: Pulse reverse shoulder arthroplasty changes of the right shoulder. No evidence of acute fra cture. There appears intact. Alignment appears appropriate. No evidence of acute osseous pathology, joint dislocation, or soft tissue swelling. The remaining por tions of the visualized chest are unremarkable. IMPRESSION: Post right reverse shoulder arthroplasty without evidence for fracture with hardware intact in an fredrick ropriate alignment.
[2021-11-25] MEDS: SODIUM CHLORIDE 0.9% 1,000 ML IV SCH (21:40)
[2021-11-26] MEDS: lamoTRIgine 25 MG TAB PO SCH ×2 (02:01→20:34)
[2021-11-26] MEDS: LEVOTHYROXINE 137 MCG TAB PO SCH (05:38)
[2021-11-26] MEDS: ASPIRIN 325 MG TAB PO SCH ×3 (05:38→20:40)
[2021-11-26] MEDS: LACTATED RINGERS 1,000 ML IV SCH (07:13)
--- NOTE | 2021-11-26 07:41 | P.DS ---
Providers Expected date of discharge: 11/26/21 Attending physician: Sterling Stevens Consults: 11/25/21 15:41 Consult Physician Routine Consulting Provider: Lita Cantu Consult Reason/Comments: Post operative medical management Do you want consulting provider notified?: Yes Primary care physician: Jordan Mcgrath - Discharge Diagnosis(es) (1) Primary osteoarthritis of right shoulder Current Visit: Yes Status: Acute (2) Status post total shoulder arthroplasty Current Visit: Yes Status: Acute Hospital Course: This is a patient that presented to my office with severe pain in the shoulder. X-rays demonstrated severe osteoarthritis of the glenohumeral joint of her shoulder. After failure of conservative treatment, we discussed the surgical and nonsurgical treatment options at length. The patient wishes to proceed with a reverse total shoulder arthroplasty. Patient is aware of the complications of the procedure which include but are not limited to infection, hardware failure, persistent pain, dislocation, and nerve injury. Informed consent was obtained. The patient is admitted to the hospital on 11/25/2021 for reverse total shoulder arthroplasty, right. She has no new complaints or concerns today. The patient is ready for discharge on postop day #1. Please see med rec for accurate list of home medications. Plan - Discharge Summary Discharge Rx Participant: Yes New Discharge Prescriptions: New Celecoxib [CeleBREX] 200 mg PO DAILY PRN #30 cap PRN Reason: Pain Sennosides-Docusate Sodium [Senokot-S] 1 tab PO BID PRN #60 tablet PRN Reason: Constipation Ondansetron [Zofran] 4 mg PO Q6HR PRN #30 tab PRN Reason: Nausea Aspirin 325 mg PO BID #60 tab HYDROcodone/APAP 5-325MG [[place] 5] 1 - 2 each PO Q6HR PRN #32 tab PRN Reason: Pain No Action Multivitamins, Thera [Multivitamin (formulary)] 1 each PO DAILY@1200 Levothyroxine Sodium [Synthroid] 137 mcg PO DAILY Sodium Chloride 5% Ophth Soln [Ru 128] 1 drops LEFT EYE BID Omeprazole [PriLOSEC] 20 mg PO AC-BRKFST lamoTRIgine [LaMICtal] 25 mg PO HS Losartan Potassium [Cozaar] 100 mg PO HS Garlic 1 tab PO DAILY Calcium Carbonate [Calcium] 600 mg PO DAILY Alpha Lipoic Acid 50 mg PO DAILY HYDROcodone/APAP 7.5-325MG [[place] 7.5-325] 1 tab PO Q6HR PRN 3 Days #10 tab PRN Reason: Pain Cetirizine HCl 10 mg PO DAILY Ginkgo Biloba 500 mg PO DAILY Metoprolol Tartrate [Lopressor] 50 mg PO BID Solifenacin Succinate 5 mg PO DAILY Docusate [Colace] 300 mg PO HS Potassium Chloride [Potassium Chloride ER] 10 meq PO DAILY hydroCHLOROthiazide [Hydrodiuril] 50 mg PO DAILY Pravastatin Sodium [Pravachol] 10 mg PO DAILY rOPINIRole HCL [Requip] 2 mg PO 1700,2200 Sertraline HCl [Zoloft] 25 mg PO DAILY Triamcinolone Acetonide [Nasacort] 1 spray EA NOSTRIL DAILY Magnesium 250 mg PO DAILY Omeprazole [PriLOSEC] 20 mg PO -[facility] Discharge Medication List Garlic 1 tab PO DAILY 01/19/14 [History] Levothyroxine Sodium [Synthroid] 137 mcg PO DAILY 01/19/14 [History] Losartan Potassium [Cozaar] 100 mg PO HS 01/19/14 [History] Multivitamins, Thera [Multivitamin (formulary)] 1 each PO DAILY@1200 01/19/14 [History] Omeprazole [PriLOSEC] [facility] 01/19/14 [History] Sodium Chloride 5% Ophth Soln [Ru 128] 1 drops LEFT EYE BID 01/19/14 [History] lamoTRIgine [LaMICtal] 25 mg PO HS 01/19/14 [History] Alpha Lipoic Acid 50 mg PO DAILY 10/26/18 [History] Calcium Carbonate [Calcium] 600 mg PO DAILY 10/26/18 [History] HYDROcodone/APAP 7.5-325MG [[place] 7.5-325] 1 tab PO Q6HR PRN 3 Days #10 tab 10/31/18 [Rx] Cetirizine HCl 10 mg PO DAILY 08/28/21 [History] Ginkgo Biloba 500 mg PO DAILY 08/28/21 [History] Metoprolol Tartrate [Lopressor] 50 mg PO BID 08/28/21 [History] Pravastatin Sodium [Pravachol] 10 mg PO DAILY 08/28/21 [History] Sertraline HCl [Zoloft] 25 mg PO DAILY 08/28/21 [History] Solifenacin Succinate 5 mg PO DAILY 08/28/21 [History] Triamcinolone Acetonide [Nasacort] 1 spray EA NOSTRIL DAILY 08/28/21 [History] hydroCHLOROthiazide [Hydrodiuril] 50 mg PO DAILY 08/28/21 [History] rOPINIRole HCL [Requip] 2 mg PO 1700,2200 08/28/21 [History] Docusate [Colace] 300 mg PO HS 11/21/21 [History] Magnesium 250 mg PO DAILY 11/21/21 [History] Potassium Chloride [Potassium Chloride ER] 10 meq PO DAILY 11/21/21 [History] Aspirin 325 mg PO BID #60 tab 11/25/21 [Rx] Celecoxib [CeleBREX] 200 mg PO DAILY PRN #30 cap 11/25/21 [Rx] HYDROcodone/APAP 5-325MG [[place] 5] 1 - 2 each PO Q6HR PRN #32 tab 11/25/21 [Rx] Omeprazole [PriLOSEC] 20 mg PO AC-BRKFST 11/25/21 [History] Ondansetron [Zofran] 4 mg PO Q6HR PRN #30 tab 11/25/21 [Rx] Sennosides-Docusate Sodium [Senokot-S] 1 tab PO BID PRN #60 tablet 11/25/21 [Rx] Follow up Appointment(s)/Referral(s): Sterling Stevens DO [Doctor of Osteopathic Medicine] - 2 Weeks Activity/Diet/Wound Care/Special Instructions: 1. Keep sling intact at the right shoulder until follow-up appointment 2. Sling may on be removed to perform gentle range of motion of the right elbow and for bathing 3. Nonweightbearing right upper extremity 4. Keep dressing over the right shoulder clean, dry, and intact over the next 7 days 5. Patient may shower with Optifoam dressing intact 6. Patient may shower without Optifoam dressing intact if surgical site remains clean and dry following removal of dressing 7. Take medications as prescribed 8. If any questions or concerns patient may contact [facility] at [phone] Discharge Disposition: HOME SELF-CARE
[2021-11-26] MEDS: METOPROLOL TARTRATE 50 MG TAB PO SCH ×2 (08:01→20:35)
[2021-11-26 09:55] LABS: Basophils # (A) 0.01 X 10*3/uL (0.00-0.10); Basophils % (A) 0.1 %; Eosinophils # (A) 0 X 10*3/uL (0.04-0.35); Eosinophils % (A) 0 %; HCT 36.8 % (37.2-46.3); Immature Grans, Automated 0.5 %; Lymphocytes # (A) 0.55 X 10*3/uL (0.90-5.00); MCH 28.8 pg (27.0-32.0); MCHC 32.6 g/dL (32.0-37.0); MCV 88.2 fL (80.0-97.0); Mean Platelet Volume 8.9 fL (9.5-12.2); Monocytes # (A) 0.65 X 10*3/uL (0.20-1.00); Monocytes % (A) 5.9 %; NRBC Per 100 WBC 0 /100 WBCS (0.0-0.0); Neutrophils # (A) 9.71 X 10*3/uL (1.80-7.70); Neutrophils % (A) 88.5 %; Platelet Count 236 X 10*3/uL (140-440); RBC 4.17 X 10*6/uL (4.10-5.20); RDW 15.8 % (11.5-14.5); WBC 10.98 X 10*3/uL (4.50-10.00)
[2021-11-26] MEDS: SODIUM CHLORIDE 0.9% 1,000 ML IV SCH (10:06)
--- NOTE | 2021-11-26 10:23 | P.CONS ---
History of Present Illness - Reason for Consult Consult date: 11/26/21 Medical management - Chief Complaint Right shoulder arthroplasty - History of Present Illness Patient is a 81-year-old female with a known history of hypertension, hyperlipidemia, osteoarthritis, obstructive sleep apnea on CPAP, hypothyroidism, GERD was admitted to hospital for right shoulder arthroplasty. Patient tolerated the procedure well. Denied any complaints of chest pain or shortness of breath. Denied any abdominal pain. Patient did have urinary retention with bladder scan showing 7 80 mL. Denied any constipation. from production. No headache or dizziness or lightheadedness. Patient is hypotensive postoperatively. Laboratory data showed WBC 10.9 hemoglobin 12.0 and platelets 236. Review of Systems Constitutional: Patient denies any fever or chills . No generalized weakness or weight loss. Abdomen: Patient denied nausea vomiting and diarrhea and abdominal pain. Cardiovascular: Patient denies any chest pain or short of breath no palpitations. Respiratory: patient denied any cough is from production. No shortness of br eath Neurologic: Patient denied any numbness or tingling headache. Musculoskeletal: Patient denies any complaints of joint swelling or deformity. Skin: Negative Psychiatric: Negative Endocrine: No heat or cold intolerance. No recent weight gain. Genitourinary: No dysuria or hematuria. All other 14 point ROS negative except the above Past Medical History Past Medical History: GERD/Reflux, Hearing Disorder / Deafness, Hyperlipidemia, Hypertension, Osteoarthritis (OA), Sleep Apnea/CPAP/BIPAP, Thyroid Disorder Additional Past Medical History / Comment(s): interstitial lung disease per pulm clearance, States scar tissue in lungs., uses CPAP, trouble walking-not sure why History of Any Multi-Drug Resistant Organisms: None Reported Past Surgical History: Cholecystectomy, Heart Catheterization, Orthopedic Surgery, Tonsillectomy, Tubal Ligation Additional Past Surgical History / Comment(s): Bunionectomy, sinus operation, judith cataracts removed, Bx of THYROID. surg. on 2 middle toes left foot, SX FOR trigeminal neuralgia, lipoma removed from back, total right shoulder 11/25/2021 Past Anesthesia/Blood Transfusion Reactions: No Reported Reaction Smoking Status: Never smoker - Past Family History Mother Family Medical History: Hypertension Medications and Allergies Home Medications Medication Instructions Recorded Confirmed Type Garlic 1 tab PO DAILY 01/19/14 11/21/21 History Levothyroxine Sodium [Synthroid] 137 mcg PO DAILY 01/19/14 11/21/21 History Losartan Potassium [Cozaar] 100 mg PO HS 01/19/14 11/21/21 History Multivitamins, Thera [Multivitamin 1 each PO DAILY@1200 01/19/14 11/21/21 History (formulary)] Omeprazole [PriLOSEC] 20 mg PO AC-BRKFST 01/19/14 11/21/21 History Sodium Chloride 5% Ophth Soln 1 drops LEFT EYE BID 01/19/14 11/21/21 History [Ru 128] lamoTRIgine [LaMICtal] 25 mg PO HS 01/19/14 11/21/21 History Alpha Lipoic Acid 50 mg PO DAILY 10/26/18 11/21/21 History Calcium Carbonate [Calcium] 600 mg PO DAILY 10/26/18 11/21/21 History Cetirizine HCl 10 mg PO DAILY 08/28/21 11/21/21 History Ginkgo Biloba 500 mg PO DAILY 08/28/21 11/21/21 History Metoprolol Tartrate [Lopressor] 50 mg PO BID 08/28/21 11/21/21 History Pravastatin Sodium [Pravachol] 10 mg PO DAILY 08/28/21 11/21/21 History Sertraline HCl [Zoloft] 25 mg PO DAILY 08/28/21 11/21/21 History Solifenacin Succinate 5 mg PO DAILY 08/28/21 11/21/21 History Triamcinolone Acetonide [Nasacort] 1 spray EA NOSTRIL DAILY 08/28/21 11/21/21 History hydroCHLOROthiazide [Hydrodiuril] 50 mg PO DAILY 08/28/21 11/21/21 History rOPINIRole HCL [Requip] 2 mg PO 1700,2200 08/28/21 11/21/21 History Docusate [Colace] 300 mg PO HS 11/21/21 11/21/21 History Magnesium 250 mg PO DAILY 11/21/21 11/21/21 History Potassium Chloride [Potassium 10 meq PO DAILY 11/21/21 11/21/21 History Chloride ER] Aspirin 325 mg PO BID #60 tab 11/25/21 Rx Celecoxib [CeleBREX] 200 mg PO DAILY PRN #30 cap 11/25/21 Rx HYDROcodone/APAP 5-325MG [[place] 5] 1 - 2 each PO Q6HR PRN #32 tab 11/25/21 Rx Omeprazole [PriLOSEC] 20 mg PO AC-BRKFST 11/25/21 11/25/21 History Ondansetron [Zofran] 4 mg PO Q6HR PRN #30 tab 11/25/21 Rx Sennosides-Docusate Sodium 1 tab PO BID PRN #60 tablet 11/25/21 Rx [Senokot-S] Allergies Allergy/AdvReac Type Severity Reaction Status Date / Time Sulfa (Sulfonamide Allergy Unknown Verified 11/25/21 11:48 Antibiotics) Childhood Physical Exam Vitals: Vital Signs Temp Pulse Pulse Resp BP Pulse Ox 11/26/21 10:08 16 11/26/21 07:57 97.6 F 63 16 110/66 93 L 11/26/21 02:00 98.4 F 75 18 108/55 91 L 11/25/21 22:00 62 104/69 98 11/25/21 20:00 62 18 11/25/21 18:31 69 122/79 97 11/25/21 18:16 70 120/78 96 11/25/21 18:01 71 123/79 96 11/25/21 17:29 77 18 135/81 95 11/25/21 17:08 71 18 132/77 98 11/25/21 16:53 75 18 134/77 98 11/25/21 16:38 74 18 133/78 99 11/25/21 16:23 74 18 136/83 99 11/25/21 16:08 74 16 146/77 98 11/25/21 15:53 76 16 151/70 99 11/25/21 15:38 75 16 146/78 98 11/25/21 15:23 77 18 138/70 94 L 11/25/21 12:53 52 L 14 132/77 96 11/25/21 11:55 97.8 F 65 16 125/56 97 Intake and Output 11/25/21 11/26/21 11/26/21 22:59 06:59 14:59 Intake Total 0 Output Total 50 775 Balance -50 -775 Intake: IV 0 Output: Urine 775 Straight 400 Estimated Blood Loss 50 Other: # Voids 0 1 Weight 110 kg PHYSICAL EXAMINATION: Patient is lying in the bed comfortably, no acute distress, awake alert and oriented.. HEENT: Normocephalic. Neck is supple. Pupils reactive. Nostrils clear. Oral cavity is moist. Neck reveals no JVD, carotid bruits, or thyromegaly. CHEST EXAMINATION: Trachea is central. Symmetrical expansion. Lung wood clear to auscultation and percussion. CARDIAC: Normal S1, S2 with no gallops. No murmurs ABDOMEN: Soft. Bowel sounds normal. No organomegaly. No abdominal bruits. Extremities: reveal no edema. No clubbing or cyanosis Neurologically awake, alert, oriented x3 with well-coordinated movements. No focal deficits noted Skin: No rash or skin lesions. Psychiatric: Coperative. Nonsuicidal Musculoskeletal: No joint swelling or deformity. Normal range of motion. Results CBC & Chem 7: 11/26/21 04:34 Labs: Abnormal Lab Results - Last 24 Hours (Table) 11/26/21 Range/Units 04:34 WBC 10.98 H (4.50-10.00) X 10*3/uL Hct 36.8 L (37.2-46.3) % RDW 15.8 H (11.5-14.5) % MPV 8.9 L (9.5-12.2) fL Immature Gran # 0.06 H (0.00-0.04) X 10*3/uL Neutrophils # 9.71 H (1.80-7.70) X 10*3/uL Lymphocytes # 0.55 L (0.90-5.00) X 10*3/uL Eosinophils # 0 L (0.04-0.35) X 10*3/uL Assessment and Plan Assessment: Status post right shoulder reverse arthroplasty postoperative day 1 Hypotension likely due to narcotic pain medications. Improving now Acute urinary retention. Patient did have straight cath 1 and awaiting spontaneous void. Hypertension Hyperlipidemia Osteoarthritis Objective sleep apnea on CPAP Hypothyroidism GERD DVT prophylaxis Plan: Patient will be continued on incentive spirometry and encourage ambulation. Patient did have acute urinary retention likely due to pain medications and anesthesia. Awaiting spontaneous armen staff. medications on hold except beta blockers. Can be started back once blood pressure improves. Current with home medications and follow closely. Further recommendations based on the clinical course. Thank you for your consult. Time with Patient: Greater than 30
[2021-11-26] MEDS: HYDROcodone/APAP 5-325MG 1 EACH TAB PO PRN (14:41)
[2021-11-27] MEDS: HYDROcodone/APAP 5-325MG 1 EACH TAB PO PRN (04:55)
[2021-11-27] MEDS: LEVOTHYROXINE 137 MCG TAB PO SCH (06:17)
[2021-11-27 07:16] VITALS: BP 124/71; PULSE 58; RESP 24; TEMP 97.4
[2021-11-27] MEDS: SODIUM CHLORIDE 0.9% 1,000 ML IV SCH (07:49)
[2021-11-27] MEDS: LACTATED RINGERS 1,000 ML IV SCH (07:49)
[2021-11-27] MEDS: METOPROLOL TARTRATE 50 MG TAB PO SCH (09:34)
[2021-11-27] MEDS: ASPIRIN 325 MG TAB PO SCH (09:34)
--- NOTE | 2021-11-27 12:00 | P.GSCN ---
History of Present Illness Consult date: 11/27/21 Reason for Consult: Urinary retention History of present illness: This is a 81-year-old female that underwent a right shoulder arthroplasty on November 25, she developed retention post operatively. Initially required straight cath 2, subsequently Arnold catheter was placed for a postvoid residual of 864 mL. Denies any previous history of urinary retention. She does have history of overactive bladder which is being managed by Vesicare. Indicates that she has sensation to void and has been unable to partially void but her residual continues to be elevated. Denies any dysuria or gross hematuria. Review of Systems - Constitutional Denies fever, Denies weight loss - Cardiovascular Denies chest pain, Denies shortness of breath - Gastrointestinal Reports as per HPI - Genitourinary Genitourinary: Denies dysuria, Denies hematuria - Neurological Denies headaches, Denies syncope Past Medical History Past Medical History: GERD/Reflux, Hearing Disorder / Deafness, Hyperlipidemia, Hypertension, Osteoarthritis (OA), Sleep Apnea/CPAP/BIPAP, Thyroid Disorder Additional Past Medical History / Comment(s): interstitial lung disease per pulm clearance, States scar tissue in lungs., uses CPAP, trouble walking-not sure why History of Any Multi-Drug Resistant Organisms: None Reported Past Surgical History: Cholecystectomy, Heart Catheterization, Orthopedic Lee rgery, Tonsillectomy, Tubal Ligation Additional Past Surgical History / Comment(s): Bunionectomy, sinus operation, judith cataracts removed, Bx of THYROID. surg. on 2 middle toes left foot, SX FOR trigeminal neuralgia, lipoma removed from back, total right shoulder 11/25/2021 Past Anesthesia/Blood Transfusion Reactions: No Reported Reaction Smoking Status: Never smoker - Past Family History Mother Family Medical History: Hypertension Medications and Allergies Home Medications Medication Instructions Recorded Confirmed Type Garlic 1 tab PO DAILY 01/19/14 11/21/21 History Levothyroxine Sodium [Synthroid] 137 mcg PO DAILY 01/19/14 11/21/21 History Losartan Potassium [Cozaar] 100 mg PO HS 01/19/14 11/21/21 History Multivitamins, Thera [Multivitamin 1 each PO DAILY@1200 01/19/14 11/21/21 History (formulary)] Omeprazole [PriLOSEC] 20 mg PO -BRKFST 01/19/14 11/21/21 History Sodium Chloride 5% Ophth Soln 1 drops LEFT EYE BID 01/19/14 11/21/21 History [Ru 128] lamoTRIgine [LaMICtal] 25 mg PO HS 01/19/14 11/21/21 History Alpha Lipoic Acid 50 mg PO DAILY 10/26/18 11/21/21 History Calcium Carbonate [Calcium] 600 mg PO DAILY 10/26/18 11/21/21 History Cetirizine HCl 10 mg PO DAILY 08/28/21 11/21/21 History Ginkgo Biloba 500 mg PO DAILY 08/28/21 11/21/21 History Metoprolol Tartrate [Lopressor] 50 mg PO BID 08/28/21 11/21/21 History Pravastatin Sodium [Pravachol] 10 mg PO DAILY 08/28/21 11/21/21 History Sertraline HCl [Zoloft] 25 mg PO DAILY 08/28/21 11/21/21 History Solifenacin Succinate 5 mg PO DAILY 08/28/21 11/21/21 History Triamcinolone Acetonide [Nasacort] 1 spray EA NOSTRIL DAILY 08/28/21 11/21/21 History hydroCHLOROthiazide [Hydrodiuril] 50 mg PO DAILY 08/28/21 11/21/21 History rOPINIRole HCL [Requip] 2 mg PO 1700,2200 08/28/21 11/21/21 History Docusate [Colace] 300 mg PO HS 11/21/21 11/21/21 History Magnesium 250 mg PO DAILY 11/21/21 11/21/21 History Potassium Chloride [Potassium 10 meq PO DAILY 11/21/21 11/21/21 History Chloride ER] Aspirin 325 mg PO BID #60 tab 11/25/21 Rx Celecoxib [CeleBREX] 200 mg PO DAILY PRN #30 cap 11/25/21 Rx HYDROcodone/APAP 5-325MG [[place] 5] 1 - 2 each PO Q6HR PRN #32 tab 11/25/21 Rx Omeprazole [PriLOSEC] 20 mg PO AC-BRKFST 11/25/21 11/25/21 History Ondansetron [Zofran] 4 mg PO Q6HR PRN #30 tab 11/25/21 Rx Sennosides-Docusate Sodium 1 tab PO BID PRN #60 tablet 11/25/21 Rx [Senokot-S] Allergies Allergy/AdvReac Type Severity Reaction Status Date / Time Sulfa (Sulfonamide Allergy Unknown Verified 11/25/21 11:48 Antibiotics) Childhood Surgical - Exam Vital Signs Temp Pulse Resp BP Pulse Ox 97.8 F 65 16 125/56 97 11/25/21 11:55 11/25/21 11:55 11/25/21 11:55 11/25/21 11:55 11/25/21 11:55 - General no distress, no pain - Eyes normal ocular movement, no pale - ENT normal nares, normal mucosa - Respiratory normal expansion, normal respiratory effort - Abdomen Abdomen: soft, non tender - Genitourinary urine is clear - Psychiatric oriented to time, oriented to person, oriented to place Results - Labs 11/26/21 04:34 Assessment and Plan Assessment: 81-year-old female postoperative urinary retention, history of overactive bladder on Vesicare. No previous history of urinary retention -At this time recommend discharging home with the Arnold catheter, will plan on seen the patient back in 1 week, she was advised to remove her catheter at 6 AM on the day of her follow-up. -Discussed recommending holding the Vesicare for now, as this is contributing to her urinary retention
--- NOTE | 2021-11-27 14:16 | P.PN ---
Subjective Progress Note Date: 11/27/21 - Reason for Consult Consult date: 11/26/21 Medical management - Chief Complaint Right shoulder arthroplasty - History of Present Illness Patient is a 81-year-old female with a known history of hypertension, hyper lipidemia, osteoarthritis, obstructive sleep apnea on CPAP, hypothyroidism, GERD was admitted to hospital for right shoulder arthroplasty. Patient tolerated the procedure well. Denied any complaints of chest pain or shortness of breath. Denied any abdominal pain. Patient did have urinary retention with bladder scan showing 7 80 mL. Denied any constipation. from production. No headache or dizziness or lightheadedness. Patient is hypotensive postoperatively. Laboratory data showed WBC 10.9 hemoglobin 12.0 and platelets 236. 11/27/2021 Patient was seen in follow-up this morning with orthopedics following and plans for discharge. Patient was evaluated by urology having some urinary retention recommending Arnold catheter and outpatient follow-up in one week. Will initiate Flomax and discussed with the patient along with daughter at the bedside. Patient reports to having previous retention on other surgeries requiring a Arnold catheter. Patient denies any chest pain or shortness of breath. Patient continues with some discomfort of the shoulder although manageable and current sling in place. Patient denies nausea or vomiting and tolerating diet. Recommend outpatient follow-up with primary care provider upon discharge. Review of systems: Constitutional: No reports of fatigue, fever, or chills Cardiovascular: No reports of chest pain or palpitations Respiratory: No reports of shortness of breath or cough GI: No reports of nausea, vomiting, or diarrhea : No reports of dysuria, reports retention Neurovascular: No reports of weakness or numbness All medications have been reviewed PHYSICAL EXAMINATION: Patient is sitting up in the bed comfortably, no acute distress, awake alert and oriented.. HEENT: Normocephalic. Neck is supple. Pupils reactive. Nostrils clear. Oral cavity is moist. Neck reveals no JVD, carotid bruits, or thyromegaly. CHEST EXAMINATION: Trachea is central. Symmetrical expansion. Lung wood clear to auscultation and percussion. CARDIAC: Normal S1, S2 with no gallops. No murmurs ABDOMEN: Soft. Bowel sounds normal. No organomegaly. No abdominal bruits. Extremities: reveal no edema. No clubbing or cyanosis, right shoulder sling in place. Neurologically awake, alert, oriented x3 with well-coordinated movements. No focal deficits noted Skin: No rash or skin lesions. Psychiatric: Cooperative. Non-suicidal Musculoskeletal: No joint swelling or deformity. Normal range of motion. Assessment: Status post right shoulder reverse arthroplasty postoperative day 2 Hypotension likely due to narcotic pain medications. Improving now Acute urinary retention postoperatively, likely due to anesthetics, an u nexpected outcome of surgery Hypertension Hyperlipidemia Osteoarthritis Objective sleep apnea on CPAP Hypothyroidism GERD DVT prophylaxis Plan: Patient will be continued on incentive spirometry and encourage ambulation. Encourage the patient and daughter to continue using incentive spirometer at least 10 times every hour while awake. Patient to need to have acute urinary retention likely due to pain medications and anesthesia and was evaluated by urology recommending indwelling Arnold catheter and close outpatient follow-up in one week. Will initiate Flomax. Recommend to continue with Current with home medications and follow closely. Further recommendations based on the clinical course. Encouraged the patient to follow-up with primary care provider, orthopedics as scheduled, and urology this week. We will continue to follow with orthopedics during hospitalization. Thank you for this consultation. The impression and plan of care has been dictated by Diana Wills, Nurse Practitioner as directed. Dr. Maverick MD I have performed a history and examination and MDM of this patient, discussed the same with the dictator, and agree with the dictator's assessment and plan as written ,documented as a scribe. Based on total visit time, I have performed more than 50% of the visit. Objective - Vital Signs Vital signs: Vital Signs Temp 97.4 F L 11/27/21 07:12 Pulse 58 L 11/27/21 07:12 Resp 24 11/27/21 07:15 BP 124/71 11/27/21 07:12 Pulse Ox 94 L 11/27/21 09:04 FiO2 Intake & Output 11/26/21 11/27/21 11/27/21 18:59 06:59 18:59 Intake Total 180 Output Total 525 1100 Balance -525 -1100 180 Intake: Oral 180 Output: Urine 525 1100 Other: Voiding Method Indwelling Catheter Indwelling Catheter - Labs CBC & Chem 7: 11/26/21 04:34
== END 2021-11-27 11:45 | disposition home health service (06) ==
LOC: OR 11:02 → 4SSUR 15:07 → OR 11-27 07:59 → 4SSUR 11-27 10:41
PROVIDERS: ADMIT Orthopaedic Surgery; ATTEND Orthopaedic Surgery
DX: M19.011 Primary osteoarthritis, right shoulder (principal); E03.9 Hypothyroidism, unspecified; E78.5 Hyperlipidemia, unspecified; N32.81 Overactive bladder; H91.90 Unspecified hearing loss, unspecified ear; I10 Essential (primary) hypertension; J84.9 Interstitial pulmonary disease, unspecified; K21.9 Gastro-esophageal reflux disease without esophagitis; Z82.49 Family history of ischemic heart disease and other diseases of the circulatory system; G47.33 Obstructive sleep apnea (adult) (pediatric); Z90.49 Acquired absence of other specified parts of digestive tract; Z98.42 Cataract extraction status, left eye; Z98.41 Cataract extraction status, right eye; Z98.890 Other specified postprocedural states; I95.81 Postprocedural hypotension; R33.9 Retention of urine, unspecified; G89.18 Other acute postprocedural pain; Z79.1 Long term (current) use of non-steroidal anti-inflammatories (NSAID); Z79.82 Long term (current) use of aspirin; Z79.890 Hormone replacement therapy; Z79.899 Other long term (current) drug therapy; Z88.2 Allergy status to sulfonamides
CPT/HCPCS: 23472; 97161; 64415; 76942; 85025; 88300; 73020; G0378; C1776; J2250; J1100; J0690 ×3; J2405; J3010; J2795; J2370; J0330; J2704; J2001

== ENCOUNTER 2022-04-23 10:19 | Emergency (ER) | payer MEDICARE ==
[2022-04-23 10:56] VITALS: BP 135/81; PULSE 68; RESP 20; TEMP 98.6
--- NOTE | 2022-04-23 13:11 | ED ---
Fall HPI - General Chief Complaint: Fall Stated Complaint: Fall, Dialated eyes Time Seen by Provider: 04/23/22 12:25 Source: patient Mode of arrival: ambulatory - History of Present Illness Initial Comments: 10-year-old female past history of hypertension, hyperlipidemia presents to the emergency department after she sustained a fall. States that she was at her dentist office today when she excellently tripped and fell hitting her head on the carpeted floor. Denies losing consciousness. No headaches or visual changes. No neck pain. Patient sustained abrasions to her right elbow and right melendez. It was recommended by the dental office that she be evaluated in the ER. Patient does not take any blood thinners. She does not take anything for pain before coming into the emergency department. No abdominal pain. No other alleviating, precipitating or modifying factors - Related Data Home Medications Medication Instructions Recorded Confirmed Garlic 1 tab PO DAILY 01/19/14 11/21/21 Levothyroxine Sodium [Synthroid] 137 mcg PO DAILY 01/19/14 11/21/21 Losartan Potassium [Cozaar] 100 mg PO HS 01/19/14 11/21/21 Multivitamins, Thera [Multivitamin 1 each PO DAILY@1200 01/19/14 11/21/21 (formulary)] Omeprazole [PriLOSEC] 20 mg PO AC-BRKFST 01/19/14 11/21/21 Sodium Chloride 5% Ophth Soln 1 drops LEFT EYE BID 01/19/14 11/21/21 [Ru 128] lamoTRIgine [LaMICtal] 25 mg PO HS 01/19/14 11/21/21 Alpha Lipoic Acid 50 mg PO DAILY 10/26/18 11/21/21 Calcium Carbonate [Calcium] 600 mg PO DAILY 10/26/18 11/21/21 Cetirizine HCl 10 mg PO DAILY 08/28/21 11/21/21 Ginkgo Biloba 500 mg PO DAILY 08/28/21 11/21/21 Metoprolol Tartrate [Lopressor] 50 mg PO BID 08/28/21 11/21/21 Pravastatin Sodium [Pravachol] 10 mg PO DAILY 08/28/21 11/21/21 Sertraline HCl [Zoloft] 25 mg PO DAILY 08/28/21 11/21/21 Solifenacin Succinate 5 mg PO DAILY 08/28/21 11/21/21 Triamcinolone Acetonide [Nasacort] 1 spray EA NOSTRIL DAILY 08/28/21 11/21/21 hydroCHLOROthiazide [Hydrodiuril] 50 mg PO DAILY 08/28/21 11/21/21 rOPINIRole HCL [Requip] 2 mg PO 1700,2200 08/28/21 11/21/21 Docusate [Colace] 300 mg PO HS 11/21/21 11/21/21 Magnesium 250 mg PO DAILY 11/21/21 11/21/21 Potassium Chloride [Potassium 10 meq PO DAILY 11/21/21 11/21/21 Chloride ER] Omeprazole [PriLOSEC] 20 mg PO AC-BRKFST 11/25/21 11/25/21 Previous Rx's Medication Instructions Recorded Aspirin 325 mg PO BID #60 tab 11/25/21 Celecoxib [CeleBREX] 200 mg PO DAILY PRN #30 cap 11/25/21 HYDROcodone/APAP 5-325MG [[place] 5] 1 - 2 each PO Q6HR PRN #32 tab 11/25/21 Ondansetron [Zofran] 4 mg PO Q6HR PRN #30 tab 11/25/21 Sennosides-Docusate Sodium 1 tab PO BID PRN #60 tablet 11/25/21 [Senokot-S] Tamsulosin HCl [Flomax] 0.4 mg PO DAILY 7 Days #7 capsule 11/27/21 Allergies Allergy/AdvReac Type Severity Reaction Status Date / Time Sulfa (Sulfonamide Allergy Unknown Verified 04/23/22 10:56 Antibiotics) Childhood Review of Systems ROS Statement: Those systems with pertinent positive or pertinent negative responses have been documented in the HPI. ROS Other: All systems not noted in ROS Statement are negative. Past Medical History Past Medical History: GERD/Reflux, Hearing Disorder / Deafness, Hyperlipidemia, Hypertension, Osteoarthritis (OA), Sleep Apnea/CPAP/BIPAP, Thyroid Disorder Additional Past Medical History / Comment(s): interstitial lung disease per pulm clearance, States scar tissue in lungs., uses CPAP, trouble walking-not sure why History of Any Multi-Drug Resistant Organisms: None Reported Past Surgical History: Cholecystectomy, Heart Catheterization, Orthopedic Surgery, Tonsillectomy, Tubal Ligation Additional Past Surgical History / Comment(s): Bunionectomy, sinus operation, judith cataracts removed, Bx of THYROID. surg. on 2 middle toes left foot, SX FOR trigeminal neuralgia, lipoma removed from back, total right shoulder 11/25/2021 Past Anesthesia/Blood Transfusion Reactions: No Reported Reaction Past Psychological History: Anxiety Smoking Status: Never smoker Past Alcohol Use History: None Reported Past Drug Use History: None Reported - Past Family History Mother Family Medical History: Hypertension General Exam Limitations: no limitations General appearance: alert, in no apparent distress Head exam: Present: atraumatic, normocephalic, normal inspection Eye exam: Present: normal appearance, PERRL, EOMI. Absent: scleral icterus, conjunctival injection, periorbital swelling ENT exam: Present: normal exam, mucous membranes moist Neck exam: Present: normal inspection. Absent: tenderness, meningismus, lymphadenopathy Respiratory exam: Present: normal lung sounds bilaterally. Absent: respiratory distress, wheezes, rales, rhonchi, stridor Cardiovascular Exam: Present: regular rate, normal rhythm, normal heart sounds. Absent: systolic murmur, diastolic murmur, rubs, gallop, clicks GI/Abdominal exam: Present: soft, normal bowel sounds. Absent: distended, tenderness, guarding, rebound, rigid Extremities exam: Present: normal inspection, full ROM, normal capillary refill. Absent: tenderness, pedal edema, joint swelling, calf tenderness Back exam: Present: normal inspection Neurological exam: Present: alert, oriented X3, CN II-XII intact Psychiatric exam: Present: normal affect, normal mood Skin exam: Present: warm, dry, normal color, abrasion (right dorsal forearm, right knee). Absent: rash Course Vital Signs 04/23/22 10:54 Temperature 98.6 F Pulse Rate 68 Respiratory 20 Rate Blood Pressure 135/81 O2 Sat by Pulse 96 Oximetry Medical Decision Making - Medical Decision Making Upon arrival patient was placed into room 28. Thorough history and physical exam was performed. Patient is evaluated and has no concerning neurologic signs at this time. I did discuss performing a CT the patient's head however she is refusing at this time. She is awake, alert and capable of making her own decisions. Aware of the risks of not having any testing performed. Patient is able to get up and ambulate without difficulty. She will follow-up with her primary care doctor in 2-4 days return for any new or worsening symptoms. Patient agreeable to plan and was discharged home in stable condition Disposition Clinical Impression: Fall, Blunt head trauma, Knee abrasion Disposition: HOME SELF-CARE Condition: Stable Instructions (If sedation given, give patient instructions): Fall Prevention (ED) Additional Instructions: Please rest, ice and elevate your knee and wrist. Follow up with your primary care doctor in 2-4 days. Return for any new or worsening symptoms. Is patient prescribed a controlled substance at d/c from ED?: No Referrals: Jordan Mcgrath MD [Primary Care Provider] - 1-2 days Time of Disposition: 13:11
== END 2022-04-23 13:20 | disposition home or self-care (01) ==
LOC: EC 10:19
DX: S09.90XA Unspecified injury of head, initial encounter (principal); S80.219A Abrasion, unspecified knee, initial encounter; G47.30 Sleep apnea, unspecified; E07.9 Disorder of thyroid, unspecified; F41.9 Anxiety disorder, unspecified; M19.90 Unspecified osteoarthritis, unspecified site; E78.5 Hyperlipidemia, unspecified; I10 Essential (primary) hypertension; K21.9 Gastro-esophageal reflux disease without esophagitis; Z88.2 Allergy status to sulfonamides; Z79.82 Long term (current) use of aspirin; Z79.899 Other long term (current) drug therapy; W01.0XXA Fall on same level from slipping, tripping and stumbling without subsequent striking against object, initial encounter
CPT/HCPCS: 99283

== ENCOUNTER → 2022-05-11 | Outpatient (CLI) | payer MEDICARE | END | disposition home or self-care (01) | LOC: LABWHC1 14:01 | PROVIDERS: ATTEND Psychiatry & Neurology Neurology | DX: Z01.812 Encounter for preprocedural laboratory examination (principal) | CPT/HCPCS: 36415; 93005 ==

== ENCOUNTER 2022-06-05 11:10 | Observation (INO) | payer MEDICARE ==
[2022-06-05] MEDS ORDERED: HYDROcodone/APAP 5-325MG 1 EACH TAB PO STA (11:37)
[2022-06-05] MEDS ORDERED: ASPIRIN 81 MG PO STA (11:37)
--- NOTE | 2022-06-05 11:41 | ED ---
General Adult HPI - General Chief complaint: Chest Pain Stated complaint: chest pain Time Seen by Provider: 06/05/22 11:18 Source: patient, RN notes reviewed, old records reviewed Mode of arrival: ambulatory Limitations: no limitations - History of Present Illness Initial comments: This is a nontoxic-appearing 82-year-old female that presents to the emergency room with complaints of 4 days of chest pain underneath both breasts. Denies any diaphoresis. No fevers, cough, nausea vomiting or diarrhea. Patient states that she did see her prototyper Dr. Negrete on Wednesday and told him about the pain. He did an EKG and scheduled her for a stress test on July 13. Patient states that she is scheduled to have wires placed in her back for chronic pain which is why she seen him for cardiac clearance on Wednesday. -: days(s) (4) Location: chest Radiation: non-radiation Severity scale (1-10): 8 Quality: sharp Consistency: constant Improves with: rest Worsens with: other (Exertion) Associated Symptoms: denies other symptoms - Related Data Home Medications Medication Instructions Recorded Confirmed Garlic 1 tab PO W/SUPPER 01/19/14 06/05/22 Losartan Potassium [Cozaar] 100 mg PO HS 01/19/14 06/05/22 Multivitamins, Thera [Multivitamin 1 tab PO W/SUPPER 01/19/14 06/05/22 (formulary)] lamoTRIgine [LaMICtal] 25 mg PO HS 01/19/14 06/05/22 Calcium Carbonate [Calcium] 600 mg PO W/SUPPER 10/26/18 06/05/22 Cetirizine HCl 10 mg PO HS 08/28/21 06/05/22 Ginkgo Biloba 500 mg PO W/SUPPER 08/28/21 06/05/22 Metoprolol Tartrate [Lopressor] 50 mg PO BID 08/28/21 06/05/22 Pravastatin Sodium [Pravachol] 10 mg PO DAILY 08/28/21 06/05/22 Sertraline HCl [Zoloft] 25 mg PO DAILY 08/28/21 06/05/22 Solifenacin Succinate 5 mg PO DAILY 08/28/21 06/05/22 hydroCHLOROthiazide [Hydrodiuril] 50 mg PO DAILY 08/28/21 06/05/22 rOPINIRole HCL [Requip] 4 mg PO W/SUPPER 08/28/21 06/05/22 Potassium Chloride [Potassium 10 meq PO DAILY 11/21/21 06/05/22 Chloride ER] Omeprazole [PriLOSEC] 20 mg PO DAILY 11/25/21 06/05/22 Ascorbic Acid [Vitamin C] 500 mg PO W/SUPPER 06/05/22 06/05/22 Cholecalciferol [Vitamin D3 (25 25 mcg PO W/SUPPER 06/05/22 06/05/22 Mcg = 1000 Iu)] Desipramine HCl [Norpramin] 50 mg PO HS 06/05/22 06/05/22 Econazole 1% Cream [Spectazole] 1 applic TOPICAL DAILY 06/05/22 06/05/22 HYDROcodone/APAP 7.5-325MG [[place]ois 1 tab PO BID PRN 06/05/22 06/05/22 7.5-325] Levothyroxine Sodium [Synthroid] 137 mcg PO DAILY 06/05/22 06/05/22 Sertraline [Zoloft] 50 mg PO DAILY 06/05/22 06/05/22 Zinc Gluconate [Zinc] 50 mg PO W/SUPPER 06/05/22 06/05/22 Allergies Allergy/AdvReac Type Severity Reaction Status Date / Time Sulfa (Sulfonamide Allergy Unknown Verified 06/05/22 13:39 Antibiotics) Childhood Review of Systems ROS Statement: Those systems with pertinent positive or pertinent negative responses have been documented in the HPI. ROS Other: All systems not noted in ROS Statement are negative. Past Medical History Past Medical History: GERD/Reflux, Hearing Disorder / Deafness, Hyperlipidemia, Hypertension, Osteoarthritis (OA), Sleep Apnea/CPAP/BIPAP, Thyroid Disorder Additional Past Medical History / Comment(s): interstitial lung disease per pulm clearance, States scar tissue in lungs., uses CPAP, trouble walking-not sure why History of Any Multi-Drug Resistant Organisms: None Reported Past Surgical History: Cholecystectomy, Heart Catheterization, Orthopedic Surgery, Tonsillectomy, Tubal Ligation Additional Past Surgical History / Comment(s): Bunionectomy, sinus operation, judith cataracts removed, Bx of THYROID. surg. on 2 middle toes left foot, SX FOR trigeminal neuralgia, lipoma removed from back, total right shoulder 11/25/2021 Past Anesthesia/Blood Transfusion Reactions: No Reported Reaction Past Psychological History: Anxiety Smoking Status: Never smoker Past Alcohol Use History: None Reported Past Drug Use History: None Reported - Past Family History Mother Family Medical History: Hypertension General Exam Limitations: no limitations General appearance: alert, in no apparent distress ENT exam: Present: mucous membranes moist Neck exam: Absent: meningismus Respiratory exam: Present: normal lung sounds bilaterally. Absent: respiratory distress, wheezes, rales, rhonchi, stridor, chest wall tenderness, accessory muscle use Cardiovascular Exam: Present: regular rate, normal rhythm GI/Abdominal exam: Present: soft. Absent: distended, tenderness, rigid Extremities exam: Present: normal capillary refill, pedal edema (1+ bilateral). Absent: tenderness, calf tenderness Back exam: Present: full ROM. Absent: tenderness, CVA tenderness (R), CVA tenderness (L), rash noted Neurological exam: Present: alert, oriented X3, normal gait Psychiatric exam: Present: normal affect, normal mood Skin exam: Present: warm, dry, normal color. Absent: cyanosis, diaphoretic, petechiae, pallor Course Vital Signs 06/05/22 11:15 Temperature 97.6 F Pulse Rate 89 Respiratory 22 Rate Blood Pressure 126/79 O2 Sat by Pulse 96 Oximetry EKG Findings - EKG Results: EKG: interpreted by ORALIA, sinus rhythm (Ventricular rate 81, PA interval 0.163, QRS 0.114, QTC 0.459; left axis deviation; no ST elevation. No significant change compared to May 14, 2022) Medical Decision Making - Medical Decision Making EKG interpreted by me shows sinus with ventriucular rate 81, PA interval 0.163, QRS 0.114, QTC 0.459; left axis deviation; no ST elevation. No significant change compared to May 14, 2022 Chest x-ray interpreted by me shows no evidence of focal pneumonia, increased interstitial markings. Radiologist's interpretation mild underlying emphysema changes, chronic changes and mild cardiomegaly without acute pulmonary process. Labs show no evidence of leukocytosis. Hemoglobin stable, troponin is negative at 0.012. Patient will be placed in observation for chest pain with cardiac consult. Case discussed with Dr. Burns and Dr. Cantu Was pt. sent in by a medical professional or institution? @ -No Did you speak to anyone other than the patient for history? @ -No Did you review nursing and triage notes? @ -Agree Were old charts reviewed? @ -Old EKG Differential Diagnosis? @ -Differential Chest Pain: Stable Angina, Unstable Angina, STEMI, NSTEMI Aortic Dissection, Pneumothorax, Musculoskeletal, Esophageal Spasm GERD, Cholecystitis, Pancreatitis, Zoster, this is not meant to be an all-inclusive list. EKG interpreted by me (3pts min.)? @ -Yes see above X-rays interpreted by me (1pt min.)? @ -Yes see above CT interpreted by me (1pt min.)? @ -Not applicable U/S interpreted by me (1pt. min.)? @ -Not applicable What testing was considered but not performed? (CT, X-rays, U/S, labs)? Why? @ None What meds were considered but not given? Why? @ -. Did consider starting heparin however will defer to cardiology as patient's pain is atypical Did you discuss the management of the patient with other professionals? @ -No Did you reconcile home meds? @ -No Was smoking cessation discussed for >3mins.? @ -Not applicable Was critical care preformed (if so, how long)? @ -No Were there social determinants of health that impacted care today? How? (Homelessness, low income, unemployed, alcoholism, drug addiction, transportation, low edu. Level, literacy, decrease access to med. care, senior living, rehab)? @ -No Was there de-escalation of care discussed even if they declined? (Discuss DNR or withdrawal of care, Hospice)? @ -no What co-morbidities impacted this encounter? (DM, HTN, Smoking, COPD, CAD, Cancer, CVA, Hep., AIDS, mental health diagnosis, sleep apnea, morbid obesity)? @ -Hypertension, chronic lung disease Was patient admitted / discharged? @ -Admitted Undiagnosed new problem with uncertain prognosis? @ -[none] Drug Therapy requiring intensive monitoring for toxicity (Heparin, Nitro, Insulin, Cardizem)? @ -no Were any procedures done? @ -No Diagnosis/symptom? @ -[default] Acute, or Chronic, or Acute on Chronic? @ -[default] Uncomplicated (without systemic symptoms) or Complicated (systemic symptoms)? @ -[default] Side effects of treatment? @ -[none] Exacerbation, Progression, or Severe Exacerbation] @ -[no] Poses a threat to life or bodily function? @ -[no] - Lab Data Result diagrams: 06/05/22 11:57 06/05/22 11:57 Lab Results 06/05/22 06/05/22 06/05/22 Range/Units 11:57 11:57 11:57 WBC 7.4 (3.8-10.6) k/uL RBC 4.72 (3.80-5.40) m/uL Hgb 13.2 (11.4-16.0) gm/dL Hct 39.5 (34.0-46.0) % MCV 83.7 (80.0-100.0) fL MCH 27.9 (25.0-35.0) pg MCHC 33.3 (31.0-37.0) g/dL RDW 15.2 (11.5-15.5) % Plt Count 268 (150-450) k/uL MPV 7.3 Neutrophils % 81 % Lymphocytes % 11 % Monocytes % 4 % Eosinophils % 2 % Basophils % 0 % Neutrophils # 6.0 (1.3-7.7) k/uL Lymphocytes # 0.8 L (1.0-4.8) k/uL Monocytes # 0.3 (0-1.0) k/uL Eosinophils # 0.2 (0-0.7) k/uL Basophils # 0.0 (0-0.2) k/uL Poikilocytosis Slight PT 10.4 (9.0-12.0) sec INR 1.0 (<1.2) APTT 24.8 (22.0-30.0) sec Sodium 139 (137-145) mmol/L Potassium 3.6 (3.5-5.1) mmol/L Chloride 102 (98-107) mmol/L Carbon Dioxide 32 H (22-30) mmol/L Anion Gap 5 mmol/L BUN 18 H (7-17) mg/dL Creatinine 0.70 (0.52-1.04) mg/dL Est GFR (CKD-EPI)AfAm >90 (>60 ml/min/1.73 sqM) Est GFR (CKD-EPI)NonAf 82 (>60 ml/min/1.73 sqM) Glucose 122 H (74-99) mg/dL Calcium 9.0 (8.4-10.2) mg/dL Magnesium 1.9 (1.6-2.3) mg/dL Total Bilirubin 0.6 (0.2-1.3) mg/dL AST 22 (14-36) U/L ALT 16 (4-34) U/L Alkaline Phosphatase 121 (38-126) U/L Troponin I (0.000-0.034) ng/mL Total Protein 6.1 L (6.3-8.2) g/dL Albumin 3.7 (3.5-5.0) g/dL 06/05/22 Range/Units 11:57 WBC (3.8-10.6) k/uL RBC (3.80-5.40) m/uL Hgb (11.4-16.0) gm/dL Hct (34.0-46.0) % MCV (80.0-100.0) fL MCH (25.0-35.0) pg MCHC (31.0-37.0) g/dL RDW (11.5-15.5) % Plt Count (150-450) k/uL MPV Neutrophils % % Lymphocytes % % Monocytes % % Eosinophils % % Basophils % % Neutrophils # (1.3-7.7) k/uL Lymphocytes # (1.0-4.8) k/uL Monocytes # (0-1.0) k/uL Eosinophils # (0-0.7) k/uL Basophils # (0-0.2) k/uL Poikilocytosis PT (9.0-12.0) sec INR (<1.2) APTT (22.0-30.0) sec Sodium (137-145) mmol/L Potassium (3.5-5.1) mmol/L Chloride (98-107) mmol/L Carbon Dioxide (22-30) mmol/L Anion Gap mmol/L BUN (7-17) mg/dL Creatinine (0.52-1.04) mg/dL Est GFR (CKD-EPI)AfAm (>60 ml/min/1.73 sqM) Est GFR (CKD-EPI)NonAf (>60 ml/min/1.73 sqM) Glucose (74-99) mg/dL Calcium (8.4-10.2) mg/dL Magnesium (1.6-2.3) mg/dL Total Bilirubin (0.2-1.3) mg/dL AST (14-36) U/L ALT (4-34) U/L Alkaline Phosphatase (38-126) U/L Troponin I <0.012 (0.000-0.034) ng/mL Total Protein (6.3-8.2) g/dL Albumin (3.5-5.0) g/dL Disposition Clinical Impression: Chest pain Disposition: ADMITTED IP TO THIS [facility] Condition: Good Decision Date: 06/05/22 Decision Time: 13:09
--- NOTE | 2022-06-05 12:06 | XR ---
EXAMINATION TYPE: XR chest 2V DATE OF EXAM: 06/05/2022 COMPARISON: Chest CT May 11, 2018 HISTORY: Chest pain. TECHNIQUE: Frontal and lateral views of the chest are obtained. FINDINGS: Background mild underlying emphysematous changes are present. There is no suspicious focal air space opacity, pleural effusion, or pneumothorax seen. The cardiac silhouette size is mildly enl arged. The osseous structures are demineralized. Advanced degenerative change left glenohumeral carmenza nt is present. Surgical change to right shoulder is partially imaged. IMPRESSION: Chronic changes and mild cardiomegaly without acute pulmonary process.
[2022-06-05 12:31] LABS: Basophils % (A) 0 %; Eosinophils # (A) 0.2 k/uL (0-0.7); Eosinophils % (A) 2 %; HCT 39.5 % (34.0-46.0); HGB 13.2 gm/dL (11.4-16.0); Lymphocytes # (A) 0.8 k/uL (1.0-4.8); Lymphocytes % (A) 11 %; MCH 27.9 pg (25.0-35.0); MCHC 33.3 g/dL (31.0-37.0); MCV 83.7 fL (80.0-100.0); Mean Platelet Volume 7.3; Monocytes # (A) 0.3 k/uL (0-1.0); Monocytes % (A) 4 %; Neutrophils % (A) 81 %; Platelet Count 268 k/uL (150-450); Poikilocytosis Slight; RBC 4.72 m/uL (3.80-5.40); RDW 15.2 % (11.5-15.5); WBC 7.4 k/uL (3.8-10.6)
[2022-06-05 12:40] LABS: Partial Thromboplastin Time 24.8 sec (22.0-30.0); Prothrombin Time 10.4 sec (9.0-12.0)
[2022-06-05 12:47] LABS: ALT 16 U/L (4-34); AST 22 U/L (14-36); African American GFR (CKD) >90 (>60 ml/min/1.73 sqM); Albumin 3.7 g/dL (3.5-5.0); Alkaline Phosphatase 121 U/L (38-126); Anion Gap 5 mmol/L; Blood Urea Nitrogen 18 mg/dL (7-17); Carbon Dioxide 32 mmol/L (22-30); Chloride 102 mmol/L (98-107); Glucose 122 mg/dL (74-99); Magnesium 1.9 mg/dL (1.6-2.3); Non-African American GFR(CKD) 82 (>60 ml/min/1.73 sqM); Potassium 3.6 mmol/L (3.5-5.1); Sodium 139 mmol/L (137-145); Total Bilirubin 0.6 mg/dL (0.2-1.3); Total Protein 6.1 g/dL (6.3-8.2)
[2022-06-05] MEDS ORDERED: ACETAMINOPHEN TAB 325 MG TAB PO PRN (13:09)
[2022-06-05] MEDS ORDERED: NALOXONE 0.4 MG/ML 1 ML VIAL IV PRN (13:09)
[2022-06-05] MEDS ORDERED: HYDROcodone/APAP 7.5-325MG 1 EACH TAB PO PRN (14:36)
[2022-06-05] MEDS ORDERED: HYDROmorphone 0.5 MG/0.5 ML SYRINGE IVP PRN (14:37)
[2022-06-05] MEDS ORDERED: ZINC SULFATE 220 MG CAP PO SCH (17:30)
[2022-06-05] MEDS ORDERED: CHOLECALCIFEROL 25 MCG (1000 IU) TABLET PO SCH (17:30)
[2022-06-05] MEDS ORDERED: NON FORMULARY DRUG (Garlic [Garlic] 1 EACH Tablet) PO SCH (17:30)
[2022-06-05] MEDS ORDERED: GINKGO BILOBA 500 MG PO SCH (17:30)
[2022-06-05] MEDS ORDERED: CALCIUM CARBONATE 500 MG CHEWABLE PO SCH (17:30)
[2022-06-05] MEDS ORDERED: MULTIVITAMINS, THERA 1 EACH TAB PO SCH (17:30)
[2022-06-05] MEDS ORDERED: rOPINIRole HCL 4 MG TABLET PO SCH (17:30)
[2022-06-05] MEDS ORDERED: ASCORBIC ACID 500 MG TAB PO SCH (17:30)
[2022-06-05] MEDS ORDERED: DESIPRAMINE 25 MG TAB PO SCH (21:00)
[2022-06-05] MEDS ORDERED: lamoTRIgine 25 MG TAB PO SCH (21:00)
[2022-06-05] MEDS ORDERED: LOSARTAN 50 MG TAB PO SCH (21:00)
[2022-06-05] MEDS ORDERED: LORATADINE 10 MG TAB PO SCH (21:00)
[2022-06-05] MEDS: METOPROLOL TARTRATE 50 MG TAB PO SCH (21:26)
--- NOTE | 2022-06-06 01:47 | HP ---
HISTORY AND PHYSICAL CHIEF COMPLAINT: Chest pain. HISTORY OF PRESENT ILLNESS: This 82-year-old woman with a past medical history of multiple medical issues of hypertension, hyperlipidemia, who was also scheduled to have an outpatient stress test. Now, currently, the patient is complaining of chest pain in the anterior part of chest for the last 4 days and also radiating under both breast also. There is no history of fever, rigors, or chills at this time. The initial troponins were negative. The EKG which I personally reviewed showed possible incomplete right bundle-branch block as well as ST-T changes. Lab grajeda, the D-dimer is not available. There is no history of fever, rigors, chills. PAST MEDICAL HISTORY: Reviewed, include hypertension, hyperlipidemia. Rest of history and rest of the chart also reviewed. HOME MEDICATIONS: Reviewed, which include levothyroxine, dose and rest of medications reviewed. ALLERGIES: Reviewed include Tylenol. FAMILY HISTORY: History of hypertension. SOCIAL HISTORY: No history of smoking or alcohol intake. REVIEW OF SYSTEMS: A 14-point review of systems is negative except as mentioned earlier. PHYSICAL EXAMINATION: VITAL SIGNS: Pulse is 89, blood pressure ntd, respirations ntd. HEENT: Conjunctivae normal. NECK: No jugular venous distention. CARDIOVASCULAR: S1, S2. RESPIRATIONS: Diminished at the bases. No rhonchi, no crackles. ABDOMEN: Soft, nontender. LEGS: No edema, no swelling. NERVOUS SYSTEM: No focal deficits. SKIN: No rash. JOINTS: No active deforming arthropathy. LABORATORY DATA: Reviewed. ASSESSMENT: 1. Chest pain, possible unstable angina. 2. Hypertension. 3. Hyperlipidemia. 4. Multiple medical issues. RECOMMENDATIONS: In this 82-year-old woman who presented with multiple complex medical issues, we will monitor the patient closely. Continue protocol, serial troponins. Cardiology consultation. Resume the home medications once they are confirmed. I would also recommend D-dimer to complete the workup also. The prognosis extremely guarded because of multiple complex medical issues. Discussed with the patient and family. Further recommendations to follow. MMODL / NON: [id number] / MTDD
[2022-06-06 07:56] VITALS: RESP 18
--- NOTE | 2022-06-06 08:35 | CA ---
Transthoracic Echo Report Name: Anabella Boss Age: 82 Gender: F : 1940 Exam Date: 06/05/2022 14:41 Exam Location: [facility] Ht (in): 72 Wt (lb): 210 Ordering Physician: Philip Gonzalez Attending/Referring Phys: Spring Assembler Supervisor Xenia Buchanan RDCS Procedure CPT: Indications: Chest Pain Cardiac Hx: Technical Quality: Fair Contrast 1: Total Dose (mL): Contrast 2: Total Dose (mL): MEASUREMENTS (Male / Female) Normal Values 2D ECHO LV Diastolic Diameter PLAX 3.7 cm 4.2 - 5.9 / 3.9 - 5.3 cm LV Systolic Diameter PLAX 2.7 cm IVS Diastolic Thickness 1.6 cm 0.6 - 1.0 / 0.6 - 0.9 cm LVPW Diastolic Thickness 1.7 cm 0.6 - 1.0 / 0.6 - 0.9 cm LV Relative Wall Thickness 0.9 RV Internal Dim ED PLAX 3.4 cm M-MODE Aortic Root Diameter MM 3.3 cm LA Systolic Diameter MM 3.9 cm LA Ao Ratio MM 1.2 AV Cusp Separation MM 1.8 cm DOPPLER AV Peak Velocity 129.7 cm/s AV Peak Gradient 6.7 mmHg AV Mean Velocity 98.3 cm/s AV Mean Gradient 4.1 mmHg AV Velocity Time Integral 26.2 cm LVOT Peak Velocity 73.2 cm/s LVOT Peak Gradient 2.1 mmHg MV Area PHT 3.6 cm??? Mitral E Point Velocity 64.0 cm/s Mitral A Point Velocity 88.4 cm/s Mitral E to A Ratio 0.7 MV Deceleration Time 209.7 ms TR Peak Velocity 222.8 cm/s TR Peak Gradient 19.9 mmHg Right Ventricular Systolic Press 24.9 mmHg FINDINGS Left Ventricle Moderately increased left ventricular wall thickness. Normal left ventricular systolic function with no obvious regional wall motion abnormalities. Left ventricular ejection fraction is estimated at 55 %. Right Ventricle Mild right ventricular dilatation. Right ventricular systolic pressure within normal limits. Right Atrium Normal right atrial size. Left Atrium Normal left atrial size. Mitral Valve Structurally normal mitral valve. No mitral stenosis, regurgitation or prolapse. Aortic Valve No aortic valve stenosis or regurgitation. Tricuspid Valve Mild tricuspid regurgitation. Pulmonic Valve Trace pulmonic regurgitation. Pericardium No pericardial effusion. Aorta Normal size aortic root and proximal ascending aorta. CONCLUSIONS Normal LV systolic function Mild tricuspid regurgitation Previewed by: Dr. Gary Seay MD (Electronically Signed) Final Date: 06 June 2022 08:34
[2022-06-06] MEDS: METOPROLOL TARTRATE 50 MG TAB PO SCH (08:41)
[2022-06-06] MEDS ORDERED: LEVOTHYROXINE 137 MCG TAB PO SCH (09:00)
[2022-06-06] MEDS ORDERED: POTASSIUM BICARBONATE/CIT AC 20 MEQ TABLET.EFF PO SCH (09:00)
[2022-06-06] MEDS ORDERED: CLOTRIMAZOLE 1% CREAM 30 GM TUBE TOPICAL SCH (09:00)
[2022-06-06] MEDS ORDERED: PANTOPRAZOLE 40 MG TABLET PO SCH (09:00)
[2022-06-06] MEDS ORDERED: SERTRALINE 25 MG TAB PO SCH (09:00)
[2022-06-06] MEDS ORDERED: SERTRALINE 50 MG TAB PO SCH (09:00)
[2022-06-06] MEDS ORDERED: TROSPIUM CHLORIDE 20 MG TABLET PO SCH (09:00)
[2022-06-06] MEDS ORDERED: PRAVASTATIN SODIUM 20 MG TAB PO SCH (09:00)
--- NOTE | 2022-06-06 10:09 | CONS ---
CONSULTATION HISTORY OF PRESENT ILLNESS: Anabella is an 82-year-old lady with history of hypertension, dyslipidemia who recently developed episodes of chest discomfort that she complains of a chest pain in the precordial area that radiates bilaterally. She was seen by Dr. Mari in the office and apparently was advised to undergo a stress test because she did not want to wait for stress testing. She comes in to hospital. There is no change in her symptoms. Her EKG shows sinus rhythm with nonspecific ST-T wave changes. She had 1 set of troponin that is negative, D-dimer is elevated. I am going to obtain further sets of troponins to rule out myocardial infarction and given the elevated D-dimer, I will obtain a CTA to rule out pulmonary embolism. She had an echocardiogram that I reviewed and it shows normal LV systolic function without any wall motion abnormalities. If troponins are negative and she is able to get up, ambulate without any symptoms, we will discharge her home and arrange an outpatient stress test as we cannot do a stress test until Wednesday given the holidays. PAST MEDICAL HISTORY: Significant for hypertension, hypothyroidism. CURRENT MEDICATIONS: 1. Cozaar. 2. Lopressor 50 b.i.d. 3. HydroDIURIL. 4. Lamictal. 5. Pravachol. 6. Zoloft. 7. K-Dur. 8. Requip. 9. [place]. 10.Synthroid. ALLERGIES: To sulfa. FAMILY HISTORY: Negative for premature coronary artery disease. SOCIAL HISTORY: Negative for current smoking, EtOH abuse or drug abuse. REVIEW OF SYSTEMS: HEENT: Unremarkable. CARDIAC: As described above. RESPIRATORY: As described above. GI: Negative. GENITOURINARY: Negative. ALLERGY/IMMUNOLOGY: Negative. SKIN: Negative. MUSCULOSKELETAL: Negative for arthritis. PSYCHOSOCIAL: Negative. DERM: Negative. CONSTITUTIONAL: Negative. ONCOLOGICAL: Negative. DRY CHAIN WORKER: Negative. Rest of the system review is not relevant. PHYSICAL EXAMINATION: GENERAL: Comfortable at rest. VITAL SIGNS: Stable. NECK: There is no jugular venous distention. Carotid upstroke is normal. There is no bruit. CHEST: Reveals good air entry bilaterally. HEART: Reveals first and second heart sounds. No gallop, no murmur. ABDOMEN: Soft. EXTREMITIES: Did not reveal any edema. Peripheral pulses are felt. LABORATORY DATA: Troponins are negative. EKG does not reveal acute ischemic changes. D-dimer is elevated. ASSESSMENT: 1. Precordial chest pain, rule out coronary artery disease. 2. Hypertension. 3. Dyslipidemia. PLAN: I will obtain a CT scan, obtain another set of troponin, ambulate her when she is feeling better, discharge her home and try to get her stress test done in the outpatient setup sooner than she is currently scheduled as. JAVIER / ELANA: [id number] /
[2022-06-06 10:55] LABS: Basophils # (A) 0.03 X 10*3/uL (0.00-0.10); Basophils % (A) 0.4 %; Eosinophils # (A) 0.21 X 10*3/uL (0.04-0.35); Eosinophils % (A) 2.6 %; HCT 37.8 % (37.2-46.3); HGB 12.4 g/dL (12.0-15.0); Immature Grans, Automated 0.6 %; Lymphocytes # (A) 1.26 X 10*3/uL (0.90-5.00); Lymphocytes % (A) 15.5 %; MCH 27.7 pg (27.0-32.0); MCHC 32.8 g/dL (32.0-37.0); MCV 84.4 fL (80.0-97.0); Mean Platelet Volume 8.7 fL (9.5-12.2); Monocytes # (A) 0.52 X 10*3/uL (0.20-1.00); Monocytes % (A) 6.4 %; NRBC Per 100 WBC 0 /100 WBCS (0.0-0.0); Neutrophils # (A) 6.07 X 10*3/uL (1.80-7.70); Neutrophils % (A) 74.5 %; Platelet Count 235 X 10*3/uL (140-440); RBC 4.48 X 10*6/uL (4.10-5.20); RDW 15.6 % (11.5-14.5); WBC 8.14 X 10*3/uL (4.50-10.00)
[2022-06-06 11:32] LABS: African American GFR (CKD) 85.2 (60.0-200.0); Anion Gap 12.7 mmol/L (10.00-18.00); BUN/Creat Ratio 20.26 Ratio (12.00-20.00); Blood Urea Nitrogen 15.5 mg/dL (9.0-27.0); Calcium 9.4 mg/dL (8.7-10.3); Carbon Dioxide 26.9 mmol/L (20.0-27.5); Non-African American GFR(CKD) 73.5 (60.0-200.0); Potassium 3.8 mmol/L (3.5-5.5)
--- NOTE | 2022-06-06 12:47 | CT ---
EXAMINATION TYPE: CT angio chest DATE OF EXAM: 06/06/2022 COMPARISON: 05/11/2018 HISTORY: 82-year-old female Elevated d dimer, chest pain TECHNIQUE: Contiguous axial scanning of the chest performed with IV Contrast, patient injected with 5 3 mL of Isovue 370. Coronal/sagittal MIP reconstructions performed. CT DLP: 430.6 mGycm Automated exposure control for dose reduction was used. FINDINGS: Heart normal size without pericardial effusion. No flattening of the interventricular septum or reflu x of contrast into the hepatic vein. Borderline ectasia ascending aorta 3.5 cm. In the short vessel branching anatomy. Borderline caliber to the main right pulmonary artery 2.6 cm may reflect underlying pulmonary hyperte nsion. There is borderline suboptimal opacification of the pulmonary arterial system limiting the arnel luation. Mixing artifact in the left main pulmonary artery. Allowing for this limitation, no definite pulmonary embolus. Borderline enlarged 1.1 cm AP window lymph node versus 1.0 cm in 2018. Additional nonenlarged scatter ed mediastinal lymph nodes are present. Otherwise, no thoracic lymphadenopathy by CT size criteria. Strandy dependent atelectasis. Larger band of atelectasis in the lower lungs. Some pleural parenchyma l scarring is present at the periphery of the left base. Mild left basilar bronchiolectasis compatibl e with the underlying scarring. No consolidation or pleural effusion. There is a suspicious 1.3 cm pulmonary nodule at the right mid lung. Very suspicious for early lung c ancer. Posterior right liver lobe cyst measuring 2.8 cm. Partially visualized bilateral renal cyst measuring at least 7.8 cm right kidney and 6.2 cm left kidney. Accentuated thoracic kyphosis. [facility] in the upper thoracic spine. Moderate degenerative disc disease l ower thoracic spine. IMPRESSION: 1. A 1.3 CM RIGHT MIDLUNG PULMONARY NODULE SUSPICIOUS FOR EARLY LUNG CANCER. RECOMMEND PULMONARY MEDI CINE REFERRAL FOR APPROPRIATE WORKUP AND MANAGEMENT. 2. BORDERLINE SUBOPTIMAL CONTRAST BOLUS. NO DEFINITE PULMONARY EMBOLUS. 3. CHRONIC PLEURAL-PARENCHYMAL SCARRING AT THE LEFT BASE.
[2022-06-06 13:39] VITALS: BP 123/80; PULSE 98; TEMP 97.4
--- NOTE | 2022-06-07 14:22 | DS ---
DISCHARGE SUMMARY FINAL DIAGNOSES: 1. Chest pain, myocardial function ruled out. 2. 1.3 cm right lung nodule. 3. Hypertension. 4. Hyperlipidemia. 5. Multiple medical issues. DISCHARGE DISPOSITION: The patient will be discharged in stable condition and guarded prognosis. Discharge was cleared by Cardiology. HISTORY OF PRESENT ILLNESS: This 82-year-old woman with a past medical history, admitted with chest pain, myocardial infarction ruled out. Cardiology saw the patient and cleared the patient. The patient was asymptomatic. Recommend close followup on the outpatient stress test. The patient also had a slightly elevated D-dimer. A CT scan of the chest showed no evidence of pulmonary embolism. 1.3 cm right lung nodule was noted, and outpatient followup with Pulmonary is recommended. PHYSICAL EXAMINATION: VITAL SIGNS: Stable. CARDIOVASCULAR: S1 and S2. ABDOMEN: Soft. NERVOUS SYSTEM: Nonfocal. DISCHARGE MEDICATIONS: Continue the home medications. FOLLOWUP: Follow with Dr. Jordan Mcgrath in 1 to 2 days. Follow up with Dr. Car in week. Continue to monitor. Follow up with Cardiology as recommended, outpatient stress test. MMODL / IJN: [id number] /
== END 2022-06-06 13:51 | disposition home or self-care (01) ==
LOC: EC 11:10 → 6NMEDSUR 13:00
PROVIDERS: ADMIT Hospitalist; ATTEND Hospitalist
DX: R07.89 Other chest pain (principal); I11.9 Hypertensive heart disease without heart failure; J84.9 Interstitial pulmonary disease, unspecified; R91.1 Solitary pulmonary nodule; R79.89 Other specified abnormal findings of blood chemistry; E78.5 Hyperlipidemia, unspecified; E03.9 Hypothyroidism, unspecified; K21.9 Gastro-esophageal reflux disease without esophagitis; G47.30 Sleep apnea, unspecified; M19.90 Unspecified osteoarthritis, unspecified site; G89.29 Other chronic pain; M54.9 Dorsalgia, unspecified; H91.90 Unspecified hearing loss, unspecified ear; F41.9 Anxiety disorder, unspecified; Z79.890 Hormone replacement therapy; Z79.899 Other long term (current) drug therapy; Z88.2 Allergy status to sulfonamides; Z88.6 Allergy status to analgesic agent; Z90.49 Acquired absence of other specified parts of digestive tract; Z98.51 Tubal ligation status; Z98.42 Cataract extraction status, left eye; Z98.41 Cataract extraction status, right eye; Z96.611 Presence of right artificial shoulder joint; Z98.890 Other specified postprocedural states; Z82.49 Family history of ischemic heart disease and other diseases of the circulatory system
CPT/HCPCS: 99285; 36415; 93005; 93306; 85379; 80053; 80048; 83735; 84484 ×2; 85025 ×2; 85610; 85730; 71046; 71275; G0378 ×2; Q9967

== ENCOUNTER → 2022-06-17 | Outpatient (CLI) | payer MEDICARE ==
--- NOTE | 2022-06-17 21:13 | NM ---
EXAMINATION TYPE: NM DatScan Brain SPECT DATE OF EXAM: 06/17/2022 COMPARISON: NONE HISTORY: 82-year-old female R25.8, abnormal involuntary movements. TECHNIQUE: 10 drops of Lugol's solution was administered 1 hour prior to injection as a thyroid bloc chinedu agent. After the administration of 4.62 mCi I-123 Ioflupane DaTscan. Images obtained 3 hours p ost injection. SPECT images of the brain were acquired with axial and coronal reconstructions. FINDINGS: While the bilateral corpus striatal activity is relatively symmetric, there is abnormal mild diffuse increased background activity. IMPRESSION: Unable to exclude early changes of idiopathic Parkinson's disease or a parkinsonian syndrome given mi ld generalized increased background activity. Further clinical correlation recommended. Consider foll ow-up.
== END | disposition home or self-care (01) ==
LOC: RADNMMAIN 10:45
PROVIDERS: ATTEND Psychiatry & Neurology Neurology
DX: R25.8 Other abnormal involuntary movements (principal)
CPT/HCPCS: 78803; A9584

== ENCOUNTER → 2022-06-26 | Outpatient (CLI) | payer MEDICARE ==
--- NOTE | 2022-06-28 11:35 | PE ---
EXAMINATION TYPE: PET CT fusion skull to thigh DATE OF EXAM: 06/26/2022 CLINICAL INDICATION:Female, 82 years old with history of R91.8; TECHNIQUE: Following the intravenous administration of 11.74 mCi of F-18 FDG, whole body images are performed from the skull base to the midthigh. Images are reviewed on the computer in the coronal, axial, and sagittal planes. Reconstructed rotating images are created on independent workstation and reviewed on the computer. A non-contrast CT is performed in conjunction with the PET scan. Glucose level 110 mg/dL COMPARISON: CT 04/06/2022, 05/03/2018 PET/CT None, MRI brain with C-spine. FINDINGS: Mediastinal SUV mean is 1.9. Hepatic parenchyma SUV mean is 2.6. SKULL BASE AND NECK: Right neck soft tissue densities in to the anterior superior mediastinum thought to represent the thy roid gland measuring 2.8 x 1.3 cm with max SUV 10.0. CHEST, MEDIASTINUM, AND HILAR REGION: 11 x 9 mm right midlung pulmonary nodule is mildly increased in size from 05/11/2018 study were it measured 8 x 6 mm. Max SUV of 0.9 ABDOMEN AND PELVIS: No suspicious radiotracer activity. OSSEOUS STRUCTURES: No suspicious radiotracer activity. OTHER CT: Right shoulder arthroplasty changes hardware appears in appropriate position. 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 Atherosclerosis of the arteri al vasculature. The heart is mildly enlarged for size. Bilateral renal cysts. The gallbladder surgica lly absent. Mzda-ki-edgl articulation at the hip joints. IMPRESSION: 1. Right lower lobe pulmonary nodule has increased in size from 2018 and is without increased FDG ac tivity. Continued attention on follow-up with CT is recommended. 2. Soft tissue lesion in the expected location of the thyroid gland contents uptake correlate with t hyroid serum markers and consider dedicated thyroid ultrasound.
== END | disposition home or self-care (01) ==
LOC: RADPETMAIN 12:58
PROVIDERS: ATTEND Internal Medicine Critical Care Medicine
DX: R91.8 Other nonspecific abnormal finding of lung field (principal)
CPT/HCPCS: 78815; A9552